=== PATIENT | female | born 1985 | race African-American/Black ===

== ENCOUNTER 2019-01-06 17:44 | Inpatient (IN) | payer MEDICAID ==
[~2019-01-06] VITALS: Ht 160 cm; Wt 90.7 kg
[~2019-01-06 17:44] MED LIST: DIPH25CA85 PO; FERR1TAB24 PO; PREN1TAB52 PO
[2019-01-06] MEDS ORDERED: LORazepam 2 MG TABLET PO ONE (19:30)
[2019-01-06] MEDS ORDERED: HALOPERIDOL 5 MG TABLET PO ONE (19:30)
[2019-01-06 19:36] LABS: BASOPHILS % (AUTO) 0.5 % (0.0-2.0); EOSINOPHILS % (AUTO) 0.2 % (1.0-6.0); HEMATOCRIT 35.2 % (36-46); HEMOGLOBIN 11.4 g/dL (12.0-16.0); LYMPHOCYTES # (AUTO) 2.4 K/uL (1.0-4.8); LYMPHOCYTES % (AUTO) 21.8 % (22.0-44.0); MEAN CORPUSCULAR HEMOGLOBIN 25.8 pg (26.0-34.0); MEAN CORPUSCULAR HGB CONC 32.6 G/dL (31.0-37.0); MEAN CORPUSCULAR VOLUME 79 fL (80-100); MONOCYTES # (AUTO) 0.8 K/uL (0.1-1.0); MONOCYTES % (AUTO) 7.1 % (2.0-9.0); NEUTROPHILS # (AUTO) 7.8 K/uL (1.8-7.7); NEUTROPHILS % (AUTO) 70.4 % (40.0-70.0); PLATELET COUNT (AUTO) 362 K/uL (150-450); RED BLOOD CELL COUNT(AUTO) 4.44 MIL/uL (4.00-5.20); RED CELL DISTRIBUTION WIDTH 13.9 % (11.5-14.5)
[2019-01-06 19:52] LABS: ANION GAP 15 mmol/L (8-16); CARBON DIOXIDE 23 mmol/L (22-29); CHLORIDE 103 mmol/L (98-107); CREATININE 0.83 mg/dL (0.60-1.30); GLOMERULAR FILTR. RATE CALC > 60 mL/min (>60); GLUCOSE,RANDOM 85 mg/dL (70-110); POTASSIUM 3.1 mmol/L (3.5-5.1); SODIUM SERUM 141 mmol/L (136-145); UREA NITROGEN, BLOOD 14 mg/dL (7-18)
[2019-01-06 19:58] LABS: ALANINE AMINOTRANSFERASE 35 U/L (12-78); ALBUMIN 4.3 g/dL (3.4-5.0); ALKALINE PHOSPHATASE 54 U/L (46-116); ASPARTATE AMINOTRANSFERASE 30 U/L (15-37); BILIRUBIN,TOTAL 0.5 mg/dL (0.1-1.0); TOTAL PROTEIN, SERUM 8.2 g/dL (6.4-8.2)
[2019-01-06 20:03] LABS: AMPHET/METH SCREEN,URINE POSITIVE (NEGATIVE); BARBITURATE SCREEN, URINE NEGATIVE (NEGATIVE); BENZODIAZEPINES SCREEN,URINE NEGATIVE (NEGATIVE); CANNABINOID SCREEN,URINE NEGATIVE (NEGATIVE); COCAINE SCREEN,URINE NEGATIVE (NEGATIVE); METHADONE SCREEN, URINE NEGATIVE (NEGATIVE); OPIATE SCREEN,URINE NEGATIVE (NEGATIVE); PHENCYCLIDINE SCREEN,URINE NEGATIVE (NEGATIVE)
[2019-01-06 21:08] LABS: HEMOGLOBIN A1C 6.5 % (4.5-6.2)
[2019-01-06 21:17] LABS: CHOL/HDL RATIO 3.5 (3.9-5.7); FREE T4 (FREE THYROXINE) 1.2 ng/dL (0.76-1.46); THYROID STIMULATING HORMONE 2.33 uIU/mL (0.36-3.74)
[2019-01-06] MEDS ORDERED: POTASSIUM CHLORIDE 10% 40 MEQ/30 ML LIQUID UDCUP PO ONE (21:30)
[2019-01-07 00:16] VITALS: BP 110/68
[2019-01-07] MEDS ORDERED: BACITRACIN 28.4 GM OINTMENT TP PRN (06:00)
[2019-01-07] MEDS ORDERED: BENZOCAINE/MENTHOL LOZENGE MM PRN (06:00)
[2019-01-07] MEDS ORDERED: PETROLATUM,WHITE 28 GM JELLY TP PRN (06:00)
[2019-01-07] MEDS ORDERED: CloNIDine HCL 0.1 MG TABLET PO PRN (06:00)
[2019-01-07] MEDS ORDERED: ONDANSETRON HCL 4 MG TABLET PO PRN (06:00)
[2019-01-07] MEDS ORDERED: ALBUTEROL SULFATE HFA 90 MCG/PUFF 8 GM INHALER IH PRN (06:00)
[2019-01-07] MEDS ORDERED: MAGNESIUM HYDROXIDE SUSPENSION 30 ML UDCUP PO PRN (06:00)
[2019-01-07] MEDS ORDERED: MAG HYDROX/AL HYDROX/SIMETH ES 30 ML SUSPENSION UDCUP PO PRN (06:00)
[2019-01-07] MEDS ORDERED: LOPERAMIDE HCL 2 MG CAPSULE PO PRN (06:00)
[2019-01-07] MEDS: OMEPRAZOLE 20 MG CAPSULE PO SCH (09:00)
[2019-01-07] MEDS: DOCUSATE SODIUM 100 MG CAPSULE PO SCH (09:00)
[2019-01-07 09:16] VITALS: BP 101/61
[2019-01-07] MEDS ORDERED: GLUCAGON,HUMAN RECOMBINANT 1 MG VIAL IM PRN (09:30)
[2019-01-07 12:39] LABS: GLUCOMETER DEV NAME(LOC) BV2S.; GLUCOSE,POINT OF CARE 95 MG/DL (70-110)
[2019-01-07 16:08] VITALS: BP 107/65
[2019-01-07] MEDS: MetFORMIN HCL 500 MG TABLET PO SCH (16:42)
[2019-01-07 16:49] LABS: GLUCOMETER DEV NAME(LOC) BV2S.; GLUCOSE,POINT OF CARE 119 MG/DL (70-110)
[2019-01-07] MEDS: LORazepam 2 MG TABLET PO PRN (20:23)
[2019-01-07] MEDS: HALOPERIDOL 5 MG TABLET PO PRN (20:50)
[2019-01-07 21:04] LABS: GLUCOMETER DEV NAME(LOC) BV2S.; GLUCOSE,POINT OF CARE 102 MG/DL (70-110)
[2019-01-08 00:10] VITALS: BP 112/70
[2019-01-08] MEDS: MetFORMIN HCL 500 MG TABLET PO SCH ×4 (07:05→17:05)
[2019-01-08 07:24] LABS: GLUCOMETER DEV NAME(LOC) BV2S.; GLUCOSE,POINT OF CARE 89 MG/DL (70-110)
[2019-01-08 08:25] VITALS: BP 114/74
[2019-01-08] MEDS: DOCUSATE SODIUM 100 MG CAPSULE PO SCH ×2 (09:00→09:08)
[2019-01-08] MEDS: OMEPRAZOLE 20 MG CAPSULE PO SCH ×2 (09:00→09:08)
[2019-01-08 10:54] LABS: GLUCOMETER DEV NAME(LOC) BV2S.; GLUCOSE,POINT OF CARE 89 MG/DL (70-110)
[2019-01-08] MEDS: OLANZapine 10 MG TABLET PO SCH ×2 (12:57→20:09)
[2019-01-08] MEDS: HALOPERIDOL 5 MG TABLET PO PRN (12:58)
[2019-01-08 16:01] VITALS: BP 110/68
[2019-01-08 21:19] LABS: GLUCOMETER DEV NAME(LOC) BV2S.; GLUCOSE,POINT OF CARE 86 MG/DL (70-110)
[2019-01-09 00:02] VITALS: BP 116/78
[2019-01-09] MEDS: MetFORMIN HCL 500 MG TABLET PO SCH ×2 (07:15→17:00)
[2019-01-09 08:03] LABS: BASOPHILS % (AUTO) 0.5 % (0.0-2.0); EOSINOPHILS % (AUTO) 1.6 % (1.0-6.0); HEMATOCRIT 36.7 % (36-46); LYMPHOCYTES # (AUTO) 3.1 K/uL (1.0-4.8); LYMPHOCYTES % (AUTO) 44.5 % (22.0-44.0); MEAN CORPUSCULAR HEMOGLOBIN 26.1 pg (26.0-34.0); MEAN CORPUSCULAR HGB CONC 32.7 G/dL (31.0-37.0); MEAN CORPUSCULAR VOLUME 80 fL (80-100); MONOCYTES # (AUTO) 0.5 K/uL (0.1-1.0); MONOCYTES % (AUTO) 7.2 % (2.0-9.0); NEUTROPHILS # (AUTO) 3.2 K/uL (1.8-7.7); NEUTROPHILS % (AUTO) 46.2 % (40.0-70.0); PLATELET COUNT (AUTO) 363 K/uL (150-450); RED BLOOD CELL COUNT(AUTO) 4.61 MIL/uL (4.00-5.20); RED CELL DISTRIBUTION WIDTH 14.3 % (11.5-14.5)
[2019-01-09 08:20] LABS: % IRON SATURATION 17.1 % (22-44); ALANINE AMINOTRANSFERASE 35 U/L (12-78); ALBUMIN 3.7 g/dL (3.4-5.0); ALKALINE PHOSPHATASE 52 U/L (46-116); ANION GAP 10 mmol/L (8-16); ASPARTATE AMINOTRANSFERASE 20 U/L (15-37); BILIRUBIN,TOTAL 0.3 mg/dL (0.1-1.0); CALCIUM, TOTAL 8.5 mg/dL (8.8-10.5); CARBON DIOXIDE 27 mmol/L (22-29); CHLORIDE 105 mmol/L (98-107); CHOL/HDL RATIO 4.3 (3.9-5.7); CHOLESTEROL 142 mg/dL (131-200); CREATININE 0.78 mg/dL (0.60-1.30); GLOMERULAR FILTR. RATE CALC > 60 mL/min (>60); GLUCOSE,RANDOM 79 mg/dL (70-110); HDL CHOLESTEROL 33 mg/dL (40-60); IRON, SERUM 42 mcg/dL (50-175); LDL CHOL (CALC.) 95 mg/dL (0-130); POTASSIUM 3.2 mmol/L (3.5-5.1); SODIUM SERUM 142 mmol/L (136-145); TOTAL IRON BINDING CAPACITY 245 mcg/dL (250-450); TOTAL PROTEIN, SERUM 7.3 g/dL (6.4-8.2); TRIGLYCERIDES 71 mg/dL (15-150); UREA NITROGEN, BLOOD 11 mg/dL (7-18)
[2019-01-09 08:54] VITALS: BP 101/66
[2019-01-09] MEDS: OMEPRAZOLE 20 MG CAPSULE PO SCH ×2 (09:00→09:20)
[2019-01-09] MEDS: OLANZapine 10 MG TABLET PO SCH ×2 (09:20→20:28)
[2019-01-09] MEDS: DOCUSATE SODIUM 100 MG CAPSULE PO SCH (09:20)
[2019-01-09] MEDS ORDERED: POTASSIUM CHLORIDE 20 MEQ ER TABLET PO ONE (11:30)
[2019-01-09] MEDS: HALOPERIDOL 5 MG TABLET PO PRN (12:50)
[2019-01-09] MEDS: LORazepam 2 MG TABLET PO PRN (12:50)
[2019-01-09 20:49] LABS: GLUCOMETER DEV NAME(LOC) BV2S.; GLUCOSE,POINT OF CARE 104 MG/DL (70-110)
[2019-01-10 06:25] LABS: GLUCOMETER DEV NAME(LOC) BV2S.; GLUCOSE,POINT OF CARE 96 MG/DL (70-110)
[2019-01-10] MEDS: MetFORMIN HCL 500 MG TABLET PO SCH ×2 (06:40→16:53)
[2019-01-10 06:52] VITALS: BP 102/61
[2019-01-10 08:48] VITALS: BP 114/67
[2019-01-10 08:59] LABS: ANION GAP 8 mmol/L (8-16); CALCIUM, TOTAL 8.6 mg/dL (8.8-10.5); CARBON DIOXIDE 28 mmol/L (22-29); CHLORIDE 109 mmol/L (98-107); GLOMERULAR FILTR. RATE CALC > 60 mL/min (>60); GLUCOSE,RANDOM 83 mg/dL (70-110); POTASSIUM 3.7 mmol/L (3.5-5.1); SODIUM SERUM 145 mmol/L (136-145); UREA NITROGEN, BLOOD 15 mg/dL (7-18)
[2019-01-10] MEDS: DOCUSATE SODIUM 100 MG CAPSULE PO SCH (09:41)
[2019-01-10] MEDS: OMEPRAZOLE 20 MG CAPSULE PO SCH (09:41)
[2019-01-10] MEDS: OLANZapine 10 MG TABLET PO SCH ×2 (09:41→21:00)
[2019-01-10 10:49] LABS: GLUCOMETER DEV NAME(LOC) BV2S.; GLUCOSE,POINT OF CARE 129 MG/DL (70-110)
[2019-01-10] MEDS: LORazepam 2 MG TABLET PO PRN (12:04)
[2019-01-10] MEDS: HALOPERIDOL 5 MG TABLET PO PRN (12:04)
[2019-01-11] MEDS: MetFORMIN HCL 500 MG TABLET PO SCH ×2 (06:43→16:18)
[2019-01-11] MEDS: DOCUSATE SODIUM 100 MG CAPSULE PO SCH (08:15)
[2019-01-11] MEDS: OMEPRAZOLE 20 MG CAPSULE PO SCH (08:15)
[2019-01-11] MEDS: OLANZapine 10 MG TABLET PO SCH ×2 (08:15→20:24)
[2019-01-11 12:05] VITALS: BP 118/70
[2019-01-11 15:49] VITALS: BP 108/62
[2019-01-11 16:00] VITALS: BP 108/62
[2019-01-11] MEDS: HALOPERIDOL 5 MG TABLET PO PRN ×2 (17:07→22:47)
[2019-01-11 17:20] LABS: GLUCOMETER DEV NAME(LOC) BV2S.; GLUCOSE,POINT OF CARE 115 MG/DL (70-110)
[2019-01-11] MEDS: LORazepam 2 MG TABLET PO PRN ×2 (18:19→22:47)
[2019-01-11 22:45] VITALS: BP 118/75
[2019-01-11] MEDS: ZOLPIDEM TARTRATE 10 MG TABLET PO PRN (22:47)
[2019-01-12 06:19] VITALS: BP 143/72
[2019-01-12] MEDS: MetFORMIN HCL 500 MG TABLET PO SCH ×2 (06:50→17:25)
[2019-01-12] MEDS: OLANZapine 10 MG TABLET PO SCH ×2 (08:32→20:04)
[2019-01-12] MEDS: DOCUSATE SODIUM 100 MG CAPSULE PO SCH (08:32)
[2019-01-12] MEDS: OMEPRAZOLE 20 MG CAPSULE PO SCH (08:32)
[2019-01-12] MEDS: LORazepam 2 MG TABLET PO PRN ×2 (08:36→14:50)
[2019-01-12] MEDS: IBUPROFEN 600 MG TABLET PO PRN ×2 (14:50→23:48)
[2019-01-12 16:19] VITALS: BP 117/63
[2019-01-12] MEDS: HALOPERIDOL 5 MG TABLET PO PRN (17:29)
[2019-01-12] MEDS: ZOLPIDEM TARTRATE 10 MG TABLET PO PRN (20:48)
[2019-01-12 22:05] LABS: GLUCOMETER DEV NAME(LOC) BV3S.; GLUCOSE,POINT OF CARE 98 MG/DL (70-110)
[2019-01-12 23:40] VITALS: BP 115/75
[2019-01-13] MEDS: HALOPERIDOL 5 MG TABLET PO PRN (00:30)
[2019-01-13] MEDS: LORazepam 2 MG TABLET PO PRN ×2 (00:30→20:48)
[2019-01-13] MEDS ORDERED: BENZOCAINE 20% 11.9 GM GEL TP PRN (00:45)
[2019-01-13] MEDS: BENZOCAINE 10% 7 GM GEL TP PRN (00:59)
[2019-01-13] MEDS: MetFORMIN HCL 500 MG TABLET PO SCH ×2 (07:00→16:23)
[2019-01-13 09:28] VITALS: BP 113/69
[2019-01-13] MEDS: OMEPRAZOLE 20 MG CAPSULE PO SCH (10:01)
[2019-01-13] MEDS: DOCUSATE SODIUM 100 MG CAPSULE PO SCH (10:01)
[2019-01-13] MEDS: OLANZapine 10 MG TABLET PO SCH ×2 (10:01→20:23)
[2019-01-13 16:08] VITALS: BP 106/57
[2019-01-13] MEDS: CHLORHEXIDINE GLUCONATE 0.12% 15 ML UDCUP ORAL RINSE PO SCH ×2 (16:41→20:24)
[2019-01-13 17:10] LABS: GLUCOMETER DEV NAME(LOC) BV3S.; GLUCOSE,POINT OF CARE 111 MG/DL (70-110)
[2019-01-13] MEDS: ZOLPIDEM TARTRATE 10 MG TABLET PO PRN (20:48)
[2019-01-13 21:05] LABS: GLUCOMETER DEV NAME(LOC) BV3S.; GLUCOSE,POINT OF CARE 106 MG/DL (70-110)
[2019-01-13] MEDS ORDERED: AMOXICILLIN TRIHYDRATE 250 MG CAPSULE PO ONE (21:30)
[2019-01-14] VITALS (7 sets, daily range): BP systolic 96–137; BP diastolic 45–134
[2019-01-14] MEDS: ACETAMINOPHEN 325 MG TABLET PO PRN ×3 (01:51→23:56)
[2019-01-14] MEDS: BENZOCAINE 10% 7 GM GEL TP PRN (01:51)
[2019-01-14] MEDS: IBUPROFEN 600 MG TABLET PO PRN ×2 (03:36→18:00)
[2019-01-14] MEDS: LORazepam 2 MG TABLET PO PRN ×3 (03:36→21:16)
[2019-01-14 06:24] LABS: GLUCOMETER DEV NAME(LOC) BV3S.; GLUCOSE,POINT OF CARE 85 MG/DL (70-110)
[2019-01-14] MEDS: MetFORMIN HCL 500 MG TABLET PO SCH ×2 (07:15→16:50)
[2019-01-14] MEDS: OLANZapine 10 MG TABLET PO SCH ×2 (09:39→20:40)
[2019-01-14] MEDS: AMOXICILLIN TRIHYDRATE 500 MG CAPSULE PO SCH ×3 (09:40→16:50)
[2019-01-14] MEDS: DOCUSATE SODIUM 100 MG CAPSULE PO SCH (09:40)
[2019-01-14] MEDS: OMEPRAZOLE 20 MG CAPSULE PO SCH (09:40)
[2019-01-14 12:00] LABS: GLUCOMETER DEV NAME(LOC) BV3S.; GLUCOSE,POINT OF CARE 165 MG/DL (70-110)
[2019-01-14] MEDS: INSULIN LISPRO 100 UNITS/ML SQ PRN ×2 (12:07→21:17)
[2019-01-14] MEDS: CHLORHEXIDINE GLUCONATE 0.12% 15 ML UDCUP ORAL RINSE PO SCH ×4 (12:25→20:39)
[2019-01-14] MEDS: HALOPERIDOL 5 MG TABLET PO PRN ×2 (16:50→21:15)
[2019-01-14 16:55] LABS: GLUCOMETER DEV NAME(LOC) BV3S.; GLUCOSE,POINT OF CARE 126 MG/DL (70-110)
[2019-01-14 21:00] LABS: GLUCOMETER DEV NAME(LOC) BV3S.; GLUCOSE,POINT OF CARE 193 MG/DL (70-110)
[2019-01-14] MEDS: ZOLPIDEM TARTRATE 10 MG TABLET PO PRN (22:16)
[2019-01-15] MEDS: BENZOCAINE 10% 7 GM GEL TP PRN ×2 (00:05→17:35)
[2019-01-15] MEDS: IBUPROFEN 600 MG TABLET PO PRN ×3 (00:30→19:23)
[2019-01-15] MEDS ORDERED: LORazepam 2 MG/ML VIAL ONE ×2 (01:28→16:32)
[2019-01-15] MEDS ORDERED: HALOPERIDOL LACTATE 5 MG/ML VIAL IM ONE ×2 (01:30→16:45)
[2019-01-15] MEDS ORDERED: DiphenhydrAMINE HCL 50 MG/ML VIAL IM ONE ×2 (01:30→16:45)
[2019-01-15] MEDS ORDERED: LORazepam 2 MG/ML VIAL IM ONE ×2 (01:30→16:45)
[2019-01-15 06:39] VITALS: BP 125/87
[2019-01-15 06:59] LABS: GLUCOMETER DEV NAME(LOC) BV3S.; GLUCOSE,POINT OF CARE 87 MG/DL (70-110)
[2019-01-15] MEDS: MetFORMIN HCL 500 MG TABLET PO SCH ×2 (07:01→16:59)
[2019-01-15] MEDS: CHLORHEXIDINE GLUCONATE 0.12% 15 ML UDCUP ORAL RINSE PO SCH ×4 (07:02→21:00)
[2019-01-15 09:57] VITALS: BP 125/68
[2019-01-15] MEDS: AMOXICILLIN TRIHYDRATE 500 MG CAPSULE PO SCH ×3 (10:13→16:59)
[2019-01-15] MEDS: OLANZapine 10 MG TABLET PO SCH ×2 (10:13→21:00)
[2019-01-15] MEDS: OMEPRAZOLE 20 MG CAPSULE PO SCH (10:13)
[2019-01-15] MEDS: DOCUSATE SODIUM 100 MG CAPSULE PO SCH (10:13)
[2019-01-15 11:34] LABS: GLUCOMETER DEV NAME(LOC) BV3S.; GLUCOSE,POINT OF CARE 119 MG/DL (70-110)
[2019-01-15] MEDS ORDERED: DiphenhydrAMINE HCL 50 MG/ML VIAL ONE (16:32)
[2019-01-15] MEDS ORDERED: HALOPERIDOL LACTATE 5 MG/ML VIAL ONE (16:32)
[2019-01-15 19:18] VITALS: BP 140/94
[2019-01-15 20:25] LABS: GLUCOMETER DEV NAME(LOC) BV3S.; GLUCOSE,POINT OF CARE 108 MG/DL (70-110)
[2019-01-16] MEDS ORDERED: DiphenhydrAMINE HCL 50 MG/ML VIAL IM ONE (00:45)
[2019-01-16] MEDS ORDERED: HALOPERIDOL LACTATE 5 MG/ML VIAL IM ONE (00:45)
[2019-01-16] MEDS ORDERED: LORazepam 2 MG/ML VIAL IM ONE (00:45)
[2019-01-16 06:56] VITALS: BP 139/76
[2019-01-16] MEDS: IBUPROFEN 600 MG TABLET PO PRN (06:56)
[2019-01-16] MEDS: MetFORMIN HCL 500 MG TABLET PO SCH ×2 (06:56→16:13)
[2019-01-16 06:59] LABS: GLUCOMETER DEV NAME(LOC) BV3S.; GLUCOSE,POINT OF CARE 79 MG/DL (70-110)
[2019-01-16] MEDS: SUMAtriptan SUCCINATE 25 MG TABLET PO ONE ×2 (08:08→10:35)
[2019-01-16] MEDS: DOCUSATE SODIUM 100 MG CAPSULE PO SCH (08:09)
[2019-01-16] MEDS: OLANZapine 10 MG TABLET PO SCH ×2 (08:09→20:05)
[2019-01-16] MEDS: AMOXICILLIN TRIHYDRATE 500 MG CAPSULE PO SCH ×3 (08:09→16:13)
[2019-01-16] MEDS: OMEPRAZOLE 20 MG CAPSULE PO SCH (08:09)
[2019-01-16] MEDS: CHLORHEXIDINE GLUCONATE 0.12% 15 ML UDCUP ORAL RINSE PO SCH ×4 (08:09→20:07)
[2019-01-16 08:19] VITALS: BP 121/66
[2019-01-16] MEDS: DULoxetine HCL 30 MG CAPSULE PO SCH (11:28)
[2019-01-16] MEDS: ACETAMINOPHEN 325 MG TABLET PO PRN ×2 (11:28→17:17)
[2019-01-16 11:55] LABS: GLUCOMETER DEV NAME(LOC) BV3S.; GLUCOSE,POINT OF CARE 116 MG/DL (70-110)
[2019-01-16] MEDS: GABAPENTIN 300 MG CAPSULE PO SCH ×2 (12:06→16:13)
[2019-01-16 16:07] VITALS: BP 108/63
[2019-01-16 17:06] LABS: GLUCOMETER DEV NAME(LOC) BV3S.; GLUCOSE,POINT OF CARE 100 MG/DL (70-110)
[2019-01-16] MEDS: LORazepam 2 MG TABLET PO PRN (17:16)
[2019-01-16] MEDS: HALOPERIDOL 5 MG TABLET PO PRN (17:16)
[2019-01-16] MEDS: ZOLPIDEM TARTRATE 10 MG TABLET PO PRN (20:05)
[2019-01-16 20:35] LABS: GLUCOMETER DEV NAME(LOC) BV3S.; GLUCOSE,POINT OF CARE 119 MG/DL (70-110)
[2019-01-17 00:33] VITALS: BP 127/80
[2019-01-17 05:45] VITALS: BP 125/63
[2019-01-17] MEDS: IBUPROFEN 600 MG TABLET PO PRN (05:48)
[2019-01-17 06:30] LABS: GLUCOMETER DEV NAME(LOC) BV3S.; GLUCOSE,POINT OF CARE 136 MG/DL (70-110)
[2019-01-17] MEDS: MetFORMIN HCL 500 MG TABLET PO SCH ×2 (06:52→16:52)
[2019-01-17] MEDS: CHLORHEXIDINE GLUCONATE 0.12% 15 ML UDCUP ORAL RINSE PO SCH ×4 (07:11→20:41)
[2019-01-17] MEDS: GABAPENTIN 300 MG CAPSULE PO SCH (08:25)
[2019-01-17] MEDS: DULoxetine HCL 30 MG CAPSULE PO SCH (08:25)
[2019-01-17] MEDS: OMEPRAZOLE 20 MG CAPSULE PO SCH (08:25)
[2019-01-17] MEDS: DOCUSATE SODIUM 100 MG CAPSULE PO SCH (08:25)
[2019-01-17] MEDS: OLANZapine 10 MG TABLET PO SCH ×2 (08:25→20:40)
[2019-01-17 08:29] VITALS: BP 125/70
[2019-01-17 12:00] LABS: GLUCOMETER DEV NAME(LOC) BV3S.; GLUCOSE,POINT OF CARE 110 MG/DL (70-110)
[2019-01-17] MEDS: GABAPENTIN 400 MG CAPSULE PO SCH ×2 (12:10→16:53)
[2019-01-17] MEDS ORDERED: GABAPENTIN 300 MG CAPSULE PO SCH (13:00)
[2019-01-17 14:25] VITALS: BP 130/70
[2019-01-17] MEDS: ACETAMINOPHEN 325 MG TABLET PO PRN (14:33)
[2019-01-17 16:09] VITALS: BP 144/74
[2019-01-17 16:15] LABS: GLUCOMETER DEV NAME(LOC) BV3S.; GLUCOSE,POINT OF CARE 118 MG/DL (70-110)
[2019-01-17] MEDS: HALOPERIDOL 5 MG TABLET PO PRN ×2 (16:53→22:57)
[2019-01-17] MEDS: LORazepam 2 MG TABLET PO PRN ×2 (16:53→22:57)
[2019-01-17 20:10] LABS: GLUCOMETER DEV NAME(LOC) BV3S.; GLUCOSE,POINT OF CARE 142 MG/DL (70-110)
[2019-01-17] MEDS: ZOLPIDEM TARTRATE 10 MG TABLET PO PRN (20:41)
[2019-01-17] MEDS: INSULIN LISPRO 100 UNITS/ML SQ PRN (21:00)
[2019-01-18] VITALS: BP 135/82
[2019-01-18] MEDS: BENZOCAINE 10% 7 GM GEL TP PRN (00:01)
[2019-01-18] MEDS: IBUPROFEN 600 MG TABLET PO PRN ×2 (00:01→18:30)
[2019-01-18] MEDS: ACETAMINOPHEN 325 MG TABLET PO PRN (03:38)
[2019-01-18 05:51] LABS: GLUCOMETER DEV NAME(LOC) BV3S.; GLUCOSE,POINT OF CARE 110 MG/DL (70-110)
[2019-01-18] MEDS: MetFORMIN HCL 500 MG TABLET PO SCH ×2 (06:35→17:19)
[2019-01-18] MEDS: CHLORHEXIDINE GLUCONATE 0.12% 15 ML UDCUP ORAL RINSE PO SCH ×5 (06:49→20:58)
[2019-01-18] MEDS: OLANZapine 10 MG TABLET PO SCH ×2 (08:01→20:58)
[2019-01-18] MEDS: DOCUSATE SODIUM 100 MG CAPSULE PO SCH (08:02)
[2019-01-18] MEDS: OMEPRAZOLE 20 MG CAPSULE PO SCH (08:02)
[2019-01-18] MEDS: DULoxetine HCL 30 MG CAPSULE PO SCH (08:02)
[2019-01-18] MEDS: GABAPENTIN 400 MG CAPSULE PO SCH ×3 (08:03→17:19)
[2019-01-18 08:22] VITALS: BP 122/74
[2019-01-18 12:00] LABS: GLUCOMETER DEV NAME(LOC) BV3S.; GLUCOSE,POINT OF CARE 90 MG/DL (70-110)
[2019-01-18] MEDS ORDERED: HALOPERIDOL LACTATE 5 MG/ML VIAL ONE (12:53)
[2019-01-18] MEDS ORDERED: LORazepam 2 MG/ML VIAL ONE (12:53)
[2019-01-18] MEDS ORDERED: DiphenhydrAMINE HCL 50 MG/ML VIAL IM ONE (13:00)
[2019-01-18] MEDS ORDERED: LORazepam 2 MG/ML VIAL IM ONE (13:00)
[2019-01-18] MEDS ORDERED: HALOPERIDOL LACTATE 5 MG/ML VIAL IM ONE (13:00)
[2019-01-18 16:55] LABS: GLUCOMETER DEV NAME(LOC) BV3S.; GLUCOSE,POINT OF CARE 151 MG/DL (70-110)
[2019-01-18 16:56] VITALS: BP 125/82
[2019-01-18] MEDS: INSULIN LISPRO 100 UNITS/ML SQ PRN (17:15)
[2019-01-18] MEDS: HALOPERIDOL 5 MG TABLET PO PRN (17:18)
[2019-01-18] MEDS: LORazepam 2 MG TABLET PO PRN ×2 (17:18→22:00)
[2019-01-18 18:29] VITALS: BP 130/77
[2019-01-18 20:54] LABS: GLUCOMETER DEV NAME(LOC) BV3S.; GLUCOSE,POINT OF CARE 130 MG/DL (70-110)
[2019-01-18] MEDS: ZOLPIDEM TARTRATE 10 MG TABLET PO PRN (20:57)
[2019-01-19 00:58] VITALS: BP 122/66
[2019-01-19 05:15] VITALS: BP 124/79
[2019-01-19] MEDS: IBUPROFEN 600 MG TABLET PO PRN (05:17)
[2019-01-19 06:29] LABS: GLUCOMETER DEV NAME(LOC) BV3S.; GLUCOSE,POINT OF CARE 82 MG/DL (70-110)
[2019-01-19] MEDS: MetFORMIN HCL 500 MG TABLET PO SCH (06:39)
[2019-01-19] MEDS: CHLORHEXIDINE GLUCONATE 0.12% 15 ML UDCUP ORAL RINSE PO SCH ×2 (07:11→12:11)
[2019-01-19 08:27] VITALS: BP 118/75
[2019-01-19] MEDS: OLANZapine 10 MG TABLET PO SCH (08:31)
[2019-01-19] MEDS: OMEPRAZOLE 20 MG CAPSULE PO SCH (08:31)
[2019-01-19] MEDS: DOCUSATE SODIUM 100 MG CAPSULE PO SCH (08:31)
[2019-01-19] MEDS: DULoxetine HCL 30 MG CAPSULE PO SCH (08:32)
[2019-01-19] MEDS: GABAPENTIN 400 MG CAPSULE PO SCH ×2 (08:32→12:11)
[2019-01-19 12:00] LABS: GLUCOMETER DEV NAME(LOC) BV3S.; GLUCOSE,POINT OF CARE 104 MG/DL (70-110)
[2019-01-19] MEDS ORDERED: OLAN10TA3 PO (13:55)
[2019-01-19] MEDS ORDERED: OMEP20 PO (13:55)
[2019-01-19] MEDS ORDERED: DSS100 PO (13:55)
[2019-01-19] MEDS ORDERED: METF-960 PO (13:55)
[2019-01-19] MEDS ORDERED: GABA-533 PO (13:55)
[2019-01-19] MEDS ORDERED: PERID15L MM (13:55)
[2019-01-19] MEDS ORDERED: DULO30CA2 PO (13:55)
[2019-01-19 14:42] VITALS: BP 132/76
[2019-01-19] MEDS: ACETAMINOPHEN 325 MG TABLET PO PRN (14:56)
[2019-01-19 16:08] VITALS: BP 134/80
== END 2019-01-19 15:34 | disposition home or self-care (01) | DRG 750 ==
LOC: EMS 17:45 → B2S 21:00 → B3A 01-11 22:12
PROVIDERS: ADMIT Psychiatry & Neurology Psychiatry; ATTEND Psychiatry & Neurology Psychiatry
DX: F20.9 Schizophrenia, unspecified (principal); E11.9 Type 2 diabetes mellitus without complications; D50.9 Iron deficiency anemia, unspecified; E66.9 Obesity, unspecified; D72.829 Elevated white blood cell count, unspecified; E87.6 Hypokalemia; F15.10 Other stimulant abuse, uncomplicated; F17.210 Nicotine dependence, cigarettes, uncomplicated; F32.9 Major depressive disorder, single episode, unspecified; K04.7 Periapical abscess without sinus; R41.843 Psychomotor deficit; R45.87 Impulsiveness; Z68.35 Body mass index [BMI] 35.0-35.9, adult; Z71.6 Tobacco abuse counseling; Z59.0 Homelessness; Z91.5 Personal history of self-harm; Z56.0 Unemployment, unspecified
CPT/HCPCS: 83036; 83540; 83550; 84439; 84443; G0480; J1200; J1630; J2060

== ENCOUNTER 2019-03-08 20:19 | Inpatient (IN) | payer MEDICAID ==
[~2019-03-08] VITALS: Ht 154.9 cm; Wt 81.6 kg
[~2019-03-08 20:19] MED LIST changes: -DIPH25CA85 PO; +DSS100 PO; +DULO30CA2 PO; -FERR1TAB24 PO; +GABA-533 PO; +METF-960 PO; +OLAN10TA3 PO; +OMEP20 PO; +PERID15L MM; -PREN1TAB52 PO
[2019-03-08 21:58] LABS: BASOPHILS % (AUTO) 0.4 % (0.0-2.0); EOSINOPHILS % (AUTO) 0.3 % (1.0-6.0); HEMATOCRIT 35.5 % (36-46); HEMOGLOBIN 11.4 g/dL (12.0-16.0); LYMPHOCYTES # (AUTO) 2.4 K/uL (1.0-4.8); MEAN CORPUSCULAR HEMOGLOBIN 26.3 pg (26.0-34.0); MEAN CORPUSCULAR HGB CONC 32.2 G/dL (31.0-37.0); MEAN CORPUSCULAR VOLUME 82 fL (80-100); MONOCYTES # (AUTO) 0.6 K/uL (0.1-1.0); MONOCYTES % (AUTO) 4.5 % (2.0-9.0); NEUTROPHILS # (AUTO) 9.6 K/uL (1.8-7.7); NEUTROPHILS % (AUTO) 75.8 % (40.0-70.0); PLATELET COUNT (AUTO) 416 K/uL (150-450); RED BLOOD CELL COUNT(AUTO) 4.34 MIL/uL (4.00-5.20); RED CELL DISTRIBUTION WIDTH 15.1 % (11.5-14.5)
[2019-03-08 22:05] LABS: AMPHET/METH SCREEN,URINE POSITIVE (NEGATIVE); BARBITURATE SCREEN, URINE NEGATIVE (NEGATIVE); BENZODIAZEPINES SCREEN,URINE NEGATIVE (NEGATIVE); CANNABINOID SCREEN,URINE NEGATIVE (NEGATIVE); COCAINE SCREEN,URINE NEGATIVE (NEGATIVE); METHADONE SCREEN, URINE NEGATIVE (NEGATIVE); OPIATE SCREEN,URINE NEGATIVE (NEGATIVE)
[2019-03-08 22:06] LABS: PHENCYCLIDINE SCREEN,URINE NEGATIVE (NEGATIVE)
[2019-03-08 22:11] LABS: ANION GAP 13 mmol/L (8-16); CALCIUM, TOTAL 9.1 mg/dL (8.8-10.5); CARBON DIOXIDE 22 mmol/L (22-29); CHLORIDE 103 mmol/L (98-107); CREATININE 0.99 mg/dL (0.60-1.30); GLOMERULAR FILTR. RATE CALC > 60 mL/min (>60); GLUCOSE,RANDOM 109 mg/dL (70-110); POTASSIUM 3.5 mmol/L (3.5-5.1); SODIUM SERUM 138 mmol/L (136-145); UREA NITROGEN, BLOOD 18 mg/dL (7-18)
[2019-03-08 22:25] LABS: ALANINE AMINOTRANSFERASE 37 U/L (12-78); ALBUMIN 4.3 g/dL (3.4-5.0); ALKALINE PHOSPHATASE 62 U/L (46-116); ASPARTATE AMINOTRANSFERASE 20 U/L (15-37); BILIRUBIN,TOTAL 0.2 mg/dL (0.1-1.0); HCG,QUANTITATIVE < 1 mIU/mL (0-6); TOTAL PROTEIN, SERUM 8.9 g/dL (6.4-8.2)
[2019-03-08 23:09] LABS: GLUCOSE,POINT OF CARE 118 MG/DL (70-110)
[2019-03-09] MEDS ORDERED: HALOPERIDOL 5 MG TABLET PO PRN (04:00)
[2019-03-09] MEDS ORDERED: LORazepam 2 MG/ML VIAL IM ONE (04:15)
[2019-03-09 06:18] VITALS: BP 122/83
[2019-03-09] MEDS ORDERED: GLUCAGON,HUMAN RECOMBINANT 1 MG VIAL IM PRN (07:00)
[2019-03-09] MEDS ORDERED: ONDANSETRON HCL 4 MG TABLET PO PRN (07:15)
[2019-03-09] MEDS ORDERED: LOPERAMIDE HCL 2 MG CAPSULE PO PRN (07:15)
[2019-03-09] MEDS ORDERED: ALBUTEROL SULFATE HFA 90 MCG/PUFF 8 GM INHALER IH PRN (07:15)
[2019-03-09] MEDS ORDERED: MAGNESIUM HYDROXIDE SUSPENSION 30 ML UDCUP PO PRN (07:15)
[2019-03-09] MEDS ORDERED: BACITRACIN 28.4 GM OINTMENT TP PRN (07:15)
[2019-03-09] MEDS ORDERED: MAG HYDROX/AL HYDROX/SIMETH ES 30 ML SUSPENSION UDCUP PO PRN (07:15)
[2019-03-09] MEDS ORDERED: PETROLATUM,WHITE 28 GM JELLY TP PRN (07:15)
[2019-03-09] MEDS ORDERED: CloNIDine HCL 0.1 MG TABLET PO PRN (07:15)
[2019-03-09] MEDS ORDERED: IBUPROFEN 600 MG TABLET PO PRN (07:15)
[2019-03-09] MEDS ORDERED: ACETAMINOPHEN 325 MG TABLET PO PRN (07:15)
[2019-03-09] MEDS ORDERED: BENZOCAINE/MENTHOL LOZENGE MM PRN (07:15)
[2019-03-09 08:15] VITALS: BP 124/73
[2019-03-09] MEDS: DOCUSATE SODIUM 100 MG CAPSULE PO SCH (09:32)
[2019-03-09] MEDS: OMEPRAZOLE 20 MG CAPSULE PO SCH (09:32)
[2019-03-09 13:14] LABS: GLUCOMETER DEV NAME(LOC) BV2X.; GLUCOSE,POINT OF CARE 124 MG/DL (70-110)
[2019-03-09 16:15] VITALS: BP 117/72
[2019-03-09 16:59] LABS: GLUCOMETER DEV NAME(LOC) BV2S.; GLUCOSE,POINT OF CARE 91 MG/DL (70-110)
[2019-03-09] MEDS: MetFORMIN HCL 500 MG TABLET PO SCH (16:59)
[2019-03-09 20:38] LABS: GLUCOMETER DEV NAME(LOC) BV2S.; GLUCOSE,POINT OF CARE 127 MG/DL (70-110)
[2019-03-09] MEDS: OLANZapine 10 MG TABLET PO SCH (20:44)
[2019-03-10 00:08] VITALS: BP_SYST 106
[2019-03-10 00:09] VITALS: BP 132/78
[2019-03-10 06:24] LABS: GLUCOMETER DEV NAME(LOC) BV2X.; GLUCOSE,POINT OF CARE 111 MG/DL (70-110)
[2019-03-10] MEDS: MetFORMIN HCL 500 MG TABLET PO SCH ×2 (06:40→16:47)
[2019-03-10 08:28] VITALS: BP 124/73
[2019-03-10] MEDS: DULoxetine HCL 60 MG CAPSULE PO SCH (08:36)
[2019-03-10] MEDS: GABAPENTIN 400 MG CAPSULE PO SCH ×3 (08:37→16:47)
[2019-03-10] MEDS: DOCUSATE SODIUM 100 MG CAPSULE PO SCH (08:37)
[2019-03-10] MEDS: OMEPRAZOLE 20 MG CAPSULE PO SCH (08:37)
[2019-03-10] MEDS: OLANZapine 10 MG TABLET PO SCH ×2 (08:37→20:46)
[2019-03-10 11:19] LABS: GLUCOMETER DEV NAME(LOC) BV2X.; GLUCOSE,POINT OF CARE 150 MG/DL (70-110)
[2019-03-10] MEDS: INSULIN LISPRO 100 UNITS/ML SQ PRN (11:59)
[2019-03-10 16:24] LABS: GLUCOMETER DEV NAME(LOC) BV2X.; GLUCOSE,POINT OF CARE 133 MG/DL (70-110)
[2019-03-10 16:40] VITALS: BP 120/87
[2019-03-10 20:39] LABS: GLUCOMETER DEV NAME(LOC) BV2X.; GLUCOSE,POINT OF CARE 118 MG/DL (70-110)
[2019-03-10] MEDS ORDERED: HALOPERIDOL LACTATE 5 MG/ML VIAL IM ONE (22:15)
[2019-03-10] MEDS ORDERED: DiphenhydrAMINE HCL 50 MG/ML VIAL IM ONE (22:15)
[2019-03-10] MEDS ORDERED: LORazepam 2 MG/ML VIAL IM ONE (22:15)
[2019-03-11] MEDS: MetFORMIN HCL 500 MG TABLET PO SCH ×2 (07:05→16:45)
[2019-03-11 07:13] LABS: GLUCOMETER DEV NAME(LOC) BV2S.; GLUCOSE,POINT OF CARE 82 MG/DL (70-110)
[2019-03-11 08:19] VITALS: BP 118/68
[2019-03-11] MEDS: DOCUSATE SODIUM 100 MG CAPSULE PO SCH (08:25)
[2019-03-11] MEDS: OLANZapine 10 MG TABLET PO SCH ×2 (08:26→20:14)
[2019-03-11] MEDS: GABAPENTIN 400 MG CAPSULE PO SCH ×3 (08:26→16:45)
[2019-03-11] MEDS: OMEPRAZOLE 20 MG CAPSULE PO SCH (08:26)
[2019-03-11] MEDS: DULoxetine HCL 60 MG CAPSULE PO SCH (08:26)
[2019-03-11] MEDS: LORazepam 2 MG TABLET PO PRN ×2 (11:35→20:46)
[2019-03-11 11:39] LABS: GLUCOMETER DEV NAME(LOC) BV2X.; GLUCOSE,POINT OF CARE 85 MG/DL (70-110)
[2019-03-11 16:59] LABS: GLUCOMETER DEV NAME(LOC) BV2X.; GLUCOSE,POINT OF CARE 94 MG/DL (70-110)
[2019-03-11 18:57] VITALS: BP 119/68
[2019-03-11 20:54] LABS: GLUCOMETER DEV NAME(LOC) BV2X.; GLUCOSE,POINT OF CARE 131 MG/DL (70-110)
[2019-03-12 05:56] VITALS: BP 121/67
[2019-03-12 06:19] LABS: GLUCOMETER DEV NAME(LOC) BV2X.; GLUCOSE,POINT OF CARE 101 MG/DL (70-110)
[2019-03-12] MEDS: MetFORMIN HCL 500 MG TABLET PO SCH ×2 (06:38→16:36)
[2019-03-12] MEDS: GABAPENTIN 400 MG CAPSULE PO SCH ×3 (08:12→16:37)
[2019-03-12] MEDS: DULoxetine HCL 60 MG CAPSULE PO SCH (08:12)
[2019-03-12] MEDS: OMEPRAZOLE 20 MG CAPSULE PO SCH (08:12)
[2019-03-12] MEDS: OLANZapine 10 MG TABLET PO SCH ×2 (08:12→20:25)
[2019-03-12] MEDS: DOCUSATE SODIUM 100 MG CAPSULE PO SCH (08:12)
[2019-03-12] MEDS: LORazepam 2 MG TABLET PO PRN ×2 (11:19→16:37)
[2019-03-12 11:24] LABS: GLUCOMETER DEV NAME(LOC) BV2X.; GLUCOSE,POINT OF CARE 86 MG/DL (70-110)
[2019-03-12 16:23] VITALS: BP 108/66
[2019-03-12 17:39] LABS: GLUCOMETER DEV NAME(LOC) BV2X.; GLUCOSE,POINT OF CARE 114 MG/DL (70-110)
[2019-03-12] MEDS: ZOLPIDEM TARTRATE 10 MG TABLET PO PRN (21:15)
[2019-03-13 01:57] VITALS: BP 122/68
[2019-03-13] MEDS: MetFORMIN HCL 500 MG TABLET PO SCH ×2 (06:04→16:49)
[2019-03-13 06:34] LABS: GLUCOMETER DEV NAME(LOC) BV2X.; GLUCOSE,POINT OF CARE 90 MG/DL (70-110)
[2019-03-13] MEDS: DULoxetine HCL 60 MG CAPSULE PO SCH (08:30)
[2019-03-13] MEDS: OLANZapine 10 MG TABLET PO SCH ×2 (08:30→20:13)
[2019-03-13] MEDS: GABAPENTIN 400 MG CAPSULE PO SCH ×3 (08:30→16:49)
[2019-03-13] MEDS: OMEPRAZOLE 20 MG CAPSULE PO SCH (08:31)
[2019-03-13] MEDS: DOCUSATE SODIUM 100 MG CAPSULE PO SCH (08:31)
[2019-03-13] MEDS ORDERED: LORazepam 2 MG/ML VIAL ONE (11:10)
[2019-03-13] MEDS ORDERED: HALOPERIDOL LACTATE 5 MG/ML VIAL ONE (11:10)
[2019-03-13] MEDS ORDERED: DiphenhydrAMINE HCL 50 MG/ML VIAL ONE (11:10)
[2019-03-13] MEDS ORDERED: HALOPERIDOL LACTATE 5 MG/ML VIAL IM ONE (11:45)
[2019-03-13] MEDS ORDERED: DiphenhydrAMINE HCL 50 MG/ML VIAL IM ONE (11:45)
[2019-03-13] MEDS ORDERED: LORazepam 2 MG/ML VIAL IM ONE (11:45)
[2019-03-13 16:49] LABS: GLUCOMETER DEV NAME(LOC) BV2X.; GLUCOSE,POINT OF CARE 87 MG/DL (70-110)
[2019-03-13 20:44] LABS: GLUCOMETER DEV NAME(LOC) BV2X.; GLUCOSE,POINT OF CARE 146 MG/DL (70-110)
[2019-03-13] MEDS: INSULIN LISPRO 100 UNITS/ML SQ PRN (20:54)
[2019-03-14 03:15] VITALS: BP 107/69
[2019-03-14 06:39] LABS: GLUCOMETER DEV NAME(LOC) BV2X.; GLUCOSE,POINT OF CARE 89 MG/DL (70-110)
[2019-03-14] MEDS: MetFORMIN HCL 500 MG TABLET PO SCH ×2 (07:16→16:40)
[2019-03-14 08:14] VITALS: BP 119/68
[2019-03-14] MEDS: OMEPRAZOLE 20 MG CAPSULE PO SCH (08:44)
[2019-03-14] MEDS: GABAPENTIN 400 MG CAPSULE PO SCH (08:44)
[2019-03-14] MEDS: OLANZapine 10 MG TABLET PO SCH ×2 (08:45→20:35)
[2019-03-14] MEDS: DULoxetine HCL 60 MG CAPSULE PO SCH (08:45)
[2019-03-14] MEDS: DOCUSATE SODIUM 100 MG CAPSULE PO SCH (08:45)
[2019-03-14] MEDS: GABAPENTIN 300 MG CAPSULE PO SCH ×2 (13:03→16:42)
[2019-03-14 16:28] LABS: GLUCOMETER DEV NAME(LOC) BV2X.; GLUCOSE,POINT OF CARE 80 MG/DL (70-110)
[2019-03-14 16:42] VITALS: BP 107/73
[2019-03-15 02:00] VITALS: BP 117/71
[2019-03-15] MEDS: MetFORMIN HCL 500 MG TABLET PO SCH ×2 (06:09→17:01)
[2019-03-15 07:19] LABS: GLUCOMETER DEV NAME(LOC) BV2X.; GLUCOSE,POINT OF CARE 128 MG/DL (70-110)
[2019-03-15] MEDS: DULoxetine HCL 60 MG CAPSULE PO SCH (08:18)
[2019-03-15] MEDS: GABAPENTIN 300 MG CAPSULE PO SCH ×3 (08:18→17:01)
[2019-03-15] MEDS: DOCUSATE SODIUM 100 MG CAPSULE PO SCH (08:18)
[2019-03-15] MEDS: OLANZapine 10 MG TABLET PO SCH ×2 (08:18→20:45)
[2019-03-15] MEDS: OMEPRAZOLE 20 MG CAPSULE PO SCH (08:18)
[2019-03-15 08:25] VITALS: BP 120/73
[2019-03-15 08:40] LABS: HEMATOCRIT 36.1 % (36-46); HEMOGLOBIN 11.5 g/dL (12.0-16.0); MEAN CORPUSCULAR HEMOGLOBIN 26.2 pg (26.0-34.0); MEAN CORPUSCULAR HGB CONC 31.8 G/dL (31.0-37.0); MEAN CORPUSCULAR VOLUME 83 fL (80-100); PLATELET COUNT (AUTO) 342 K/uL (150-450); RED BLOOD CELL COUNT(AUTO) 4.36 MIL/uL (4.00-5.20); RED CELL DISTRIBUTION WIDTH 14.6 % (11.5-14.5)
[2019-03-15 08:48] LABS: HEMOGLOBIN A1C 6.1 % (4.5-6.2)
[2019-03-15 09:01] LABS: ANION GAP 6 mmol/L (8-16); CALCIUM, TOTAL 8.6 mg/dL (8.8-10.5); CARBON DIOXIDE 31 mmol/L (22-29); CHLORIDE 104 mmol/L (98-107); CHOL/HDL RATIO 4.1 (3.9-5.7); CHOLESTEROL 145 mg/dL (131-200); CREATININE 0.73 mg/dL (0.60-1.30); GLOMERULAR FILTR. RATE CALC > 60 mL/min (>60); GLUCOSE,RANDOM 79 mg/dL (70-110); HDL CHOLESTEROL 35 mg/dL (40-60); LDL CHOL (CALC.) 90 mg/dL (0-130); PHOSPHORUS 4.9 mg/dL (2.5-4.9); POTASSIUM 3.9 mmol/L (3.5-5.1); SODIUM SERUM 141 mmol/L (136-145); TRIGLYCERIDES 101 mg/dL (15-150); UREA NITROGEN, BLOOD 14 mg/dL (7-18)
[2019-03-15 09:39] LABS: BAND NEUTROPHILS % (MANUAL) 3 % (0-5); LYMPHOCYTES % (MANUAL) 23 % (22-44); MONOCYTES % (MANUAL) 3 % (2-9); SEGMENTED NEUTROPHILS % 71 % (40-70)
[2019-03-15] MEDS: LORazepam 2 MG TABLET PO PRN (09:54)
[2019-03-15 11:04] LABS: GLUCOMETER DEV NAME(LOC) BV2X.; GLUCOSE,POINT OF CARE 108 MG/DL (70-110)
[2019-03-15 16:28] LABS: GLUCOMETER DEV NAME(LOC) BV2X.; GLUCOSE,POINT OF CARE 111 MG/DL (70-110)
[2019-03-15 20:50] VITALS: BP 117/64
[2019-03-15] MEDS: ZOLPIDEM TARTRATE 10 MG TABLET PO PRN (20:54)
[2019-03-16 05:37] VITALS: BP 125/68
[2019-03-16 06:19] LABS: GLUCOMETER DEV NAME(LOC) BV2X.; GLUCOSE,POINT OF CARE 74 MG/DL (70-110)
[2019-03-16] MEDS: MetFORMIN HCL 500 MG TABLET PO SCH ×2 (07:00→16:36)
[2019-03-16 09:13] VITALS: BP 123/67
[2019-03-16] MEDS: OLANZapine 10 MG TABLET PO SCH ×2 (09:21→20:42)
[2019-03-16] MEDS: LORazepam 2 MG TABLET PO PRN ×2 (09:21→17:11)
[2019-03-16] MEDS: DOCUSATE SODIUM 100 MG CAPSULE PO SCH (09:21)
[2019-03-16] MEDS: GABAPENTIN 400 MG CAPSULE PO SCH ×3 (09:21→16:36)
[2019-03-16] MEDS: DULoxetine HCL 60 MG CAPSULE PO SCH (09:21)
[2019-03-16] MEDS: OMEPRAZOLE 20 MG CAPSULE PO SCH (09:21)
[2019-03-16 16:33] VITALS: BP 119/89
[2019-03-16 16:34] LABS: GLUCOMETER DEV NAME(LOC) BV2X.; GLUCOSE,POINT OF CARE 162 MG/DL (70-110)
[2019-03-16] MEDS: INSULIN LISPRO 100 UNITS/ML SQ PRN (16:46)
[2019-03-16] MEDS ORDERED: NICOTINE 21 MG/24 HOUR PATCH TD ONE (17:30)
[2019-03-16] MEDS: ZOLPIDEM TARTRATE 10 MG TABLET PO PRN (21:39)
[2019-03-17 02:23] VITALS: BP 120/67
[2019-03-17] MEDS: MetFORMIN HCL 500 MG TABLET PO SCH (06:45)
[2019-03-17] MEDS: OLANZapine 10 MG TABLET PO SCH (08:41)
[2019-03-17] MEDS: GABAPENTIN 400 MG CAPSULE PO SCH ×2 (08:41→12:29)
[2019-03-17] MEDS: DOCUSATE SODIUM 100 MG CAPSULE PO SCH (08:41)
[2019-03-17] MEDS: DULoxetine HCL 60 MG CAPSULE PO SCH (08:41)
[2019-03-17] MEDS: OMEPRAZOLE 20 MG CAPSULE PO SCH (08:41)
[2019-03-17 08:45] VITALS: BP 111/69
[2019-03-17] MEDS ORDERED: GABA-533 PO (12:38)
[2019-03-17] MEDS ORDERED: DULO60CA44 PO (12:38)
[2019-03-17] MEDS ORDERED: METF-960 PO (12:38)
[2019-03-17] MEDS ORDERED: OLAN10TA3 PO (12:38)
== END 2019-03-17 14:55 | disposition home or self-care (01) | DRG 750 ==
LOC: EMS 20:21 → B2X 03-09 04:31
PROVIDERS: ADMIT Psychiatry & Neurology Psychiatry; ATTEND Psychiatry & Neurology Psychiatry
DX: F25.1 Schizoaffective disorder, depressive type (principal); E11.9 Type 2 diabetes mellitus without complications; D50.9 Iron deficiency anemia, unspecified; E66.9 Obesity, unspecified; F15.10 Other stimulant abuse, uncomplicated; F17.200 Nicotine dependence, unspecified, uncomplicated; F60.3 Borderline personality disorder; F41.9 Anxiety disorder, unspecified; Z59.0 Homelessness; Z79.899 Other long term (current) drug therapy; Z88.8 Allergy status to other drugs, medicaments and biological substances; Z91.5 Personal history of self-harm; Z68.34 Body mass index [BMI] 34.0-34.9, adult
CPT/HCPCS: 83036; 83735; 84100; 85007; 87081; 96372; G0480; J1200; J1630; J2060

== ENCOUNTER 2019-05-29 15:56 | Inpatient (IN) | payer MEDICAID, OTHER ==
[~2019-05-29] VITALS: Ht 154.9 cm; Wt 94.8 kg
[~2019-05-29 15:56] MED LIST changes: -DSS100 PO; -DULO30CA2 PO; +DULO60CA44 PO; -OMEP20 PO; -PERID15L MM
[2019-05-29] MEDS ORDERED: HALOPERIDOL LACTATE 5 MG/ML VIAL IM ONE (16:45)
[2019-05-29] MEDS ORDERED: LORazepam 2 MG/ML VIAL IM ONE (16:45)
[2019-05-29] MEDS ORDERED: DiphenhydrAMINE HCL 50 MG/ML VIAL IM ONE (16:45)
[2019-05-30 00:18] VITALS: BP 121/86
[2019-05-30] MEDS ORDERED: PNEUMOCOCCAL VACCINE POLYVALENT 0.5 ML VIAL [PPSV23] IM ONE (00:30)
[2019-05-30 06:47] LABS: GLUCOMETER DEV NAME(LOC) BV3S.; GLUCOSE,POINT OF CARE 118 MG/DL (70-110)
[2019-05-30 08:02] VITALS: BP 121/64
[2019-05-30] MEDS: LORazepam 2 MG TABLET PO PRN (10:43)
[2019-05-30] MEDS ORDERED: IBUPROFEN 400 MG TABLET PO PRN (10:45)
[2019-05-30] MEDS ORDERED: MAGNESIUM HYDROXIDE SUSPENSION 30 ML UDCUP PO PRN (10:45)
[2019-05-30] MEDS ORDERED: ALBUTEROL SULFATE HFA 90 MCG/PUFF 8 GM INHALER IH PRN (10:45)
[2019-05-30] MEDS ORDERED: ACETAMINOPHEN 325 MG TABLET PO PRN (10:45)
[2019-05-30] MEDS ORDERED: NICOTINE 14 MG/24 HOUR PATCH TD PRN (10:45)
[2019-05-30] MEDS ORDERED: MAG HYDROX/AL HYDROX/SIMETH ES 30 ML SUSPENSION UDCUP PO PRN (10:45)
[2019-05-30] MEDS ORDERED: PETROLATUM,WHITE 28 GM JELLY TP PRN (10:45)
[2019-05-30] MEDS ORDERED: GuaiFENesin/D-METHORPHAN [SUGAR-FREE] 200-20MG/10 ML SYRUP UDCUP PO PRN (10:45)
[2019-05-30] MEDS ORDERED: LOPERAMIDE HCL 2 MG CAPSULE PO PRN (10:45)
[2019-05-30] MEDS ORDERED: ONDANSETRON HCL 4 MG TABLET PO PRN (10:45)
[2019-05-30] MEDS ORDERED: CloNIDine HCL 0.1 MG TABLET PO PRN (10:45)
[2019-05-30] MEDS ORDERED: DOCUSATE SODIUM 100 MG CAPSULE PO PRN (10:45)
[2019-05-30 12:53] VITALS: BP 108/62
[2019-05-30] MEDS: GABAPENTIN 400 MG CAPSULE PO SCH ×2 (14:15→16:28)
[2019-05-30 16:01] VITALS: BP 133/69
[2019-05-30] MEDS: TOPIRAMATE 25 MG TABLET PO SCH (16:28)
[2019-05-30] MEDS: NITROFURANTOIN/NITROFURAN MAC 100 MG CAPSULE [MACROBID] PO SCH (16:28)
[2019-05-30] MEDS: MetFORMIN HCL 500 MG TABLET PO SCH (16:28)
[2019-05-30] MEDS: HALOPERIDOL 5 MG TABLET PO SCH (20:20)
[2019-05-30 20:25] LABS: GLUCOMETER DEV NAME(LOC) BV3S.; GLUCOSE,POINT OF CARE 114 MG/DL (70-110)
[2019-05-31 05:58] VITALS: BP 127/70
[2019-05-31 06:41] LABS: GLUCOMETER DEV NAME(LOC) BV3S.; GLUCOSE,POINT OF CARE 107 MG/DL (70-110)
[2019-05-31] MEDS: MetFORMIN HCL 500 MG TABLET PO SCH ×2 (07:07→17:00)
[2019-05-31] MEDS: TOPIRAMATE 25 MG TABLET PO SCH ×2 (09:00→17:00)
[2019-05-31] MEDS: NITROFURANTOIN/NITROFURAN MAC 100 MG CAPSULE [MACROBID] PO SCH ×2 (09:00→17:00)
[2019-05-31] MEDS: GABAPENTIN 400 MG CAPSULE PO SCH ×3 (09:00→17:00)
[2019-05-31] MEDS ORDERED: LORazepam 2 MG/ML VIAL ONE (09:02)
[2019-05-31] MEDS ORDERED: DiphenhydrAMINE HCL 50 MG/ML VIAL ONE (09:03)
[2019-05-31] MEDS ORDERED: HALOPERIDOL LACTATE 5 MG/ML VIAL ONE (09:03)
[2019-05-31] MEDS ORDERED: LORazepam 2 MG/ML VIAL IM ONE (09:45)
[2019-05-31] MEDS ORDERED: DiphenhydrAMINE HCL 50 MG/ML VIAL IM ONE (09:45)
[2019-05-31] MEDS ORDERED: HALOPERIDOL LACTATE 5 MG/ML VIAL IM ONE (09:45)
[2019-05-31 16:00] VITALS: BP 116/68
[2019-05-31] MEDS: HALOPERIDOL 5 MG TABLET PO SCH (20:13)
[2019-06-01] MEDS: MetFORMIN HCL 500 MG TABLET PO SCH ×2 (07:00→17:50)
[2019-06-01 07:15] LABS: GLUCOMETER DEV NAME(LOC) BV3S.; GLUCOSE,POINT OF CARE 84 MG/DL (70-110)
[2019-06-01 08:21] LABS: BASOPHILS % (AUTO) 0.7 % (0.0-2.0); EOSINOPHILS % (AUTO) 2.2 % (1.0-6.0); HEMATOCRIT 36.1 % (36-46); HEMOGLOBIN 11.6 g/dL (12.0-16.0); LYMPHOCYTES # (AUTO) 2.9 K/uL (1.0-4.8); LYMPHOCYTES % (AUTO) 32.1 % (22.0-44.0); MEAN CORPUSCULAR HEMOGLOBIN 26.3 pg (26.0-34.0); MEAN CORPUSCULAR HGB CONC 32.2 G/dL (31.0-37.0); MEAN CORPUSCULAR VOLUME 82 fL (80-100); MONOCYTES # (AUTO) 0.5 K/uL (0.1-1.0); MONOCYTES % (AUTO) 5.2 % (2.0-9.0); NEUTROPHILS # (AUTO) 5.4 K/uL (1.8-7.7); NEUTROPHILS % (AUTO) 59.8 % (40.0-70.0); PLATELET COUNT (AUTO) 429 K/uL (150-450); RED BLOOD CELL COUNT(AUTO) 4.42 MIL/uL (4.00-5.20)
[2019-06-01] MEDS: NITROFURANTOIN/NITROFURAN MAC 100 MG CAPSULE [MACROBID] PO SCH ×2 (08:32→17:50)
[2019-06-01] MEDS: LORazepam 2 MG TABLET PO PRN ×2 (08:32→16:26)
[2019-06-01] MEDS: TOPIRAMATE 25 MG TABLET PO SCH ×2 (08:33→17:50)
[2019-06-01] MEDS: GABAPENTIN 400 MG CAPSULE PO SCH ×3 (08:33→17:50)
[2019-06-01 08:50] LABS: CHOL/HDL RATIO 3.9 (3.9-5.7); CHOLESTEROL 148 mg/dL (131-200); FREE T4 (FREE THYROXINE) 0.86 ng/dL (0.76-1.46); HCG,QUANTITATIVE < 1 mIU/mL (0-6); HDL CHOLESTEROL 38 mg/dL (40-60); LDL CHOL (CALC.) 89 mg/dL (0-130); THYROID STIMULATING HORMONE 3.29 uIU/mL (0.36-3.74); TRIGLYCERIDES 107 mg/dL (15-150)
[2019-06-01] MEDS: HALOPERIDOL 5 MG TABLET PO SCH (20:20)
[2019-06-02] MEDS: MetFORMIN HCL 500 MG TABLET PO SCH ×2 (06:55→16:01)
[2019-06-02 07:23] LABS: HIV 1-2 SCREEN 4TH GEN W/RFLX Non Reactive (Non Reactive)
[2019-06-02] MEDS: GABAPENTIN 400 MG CAPSULE PO SCH ×3 (09:24→16:01)
[2019-06-02] MEDS: NITROFURANTOIN/NITROFURAN MAC 100 MG CAPSULE [MACROBID] PO SCH ×2 (09:25→16:01)
[2019-06-02] MEDS: LORazepam 2 MG TABLET PO PRN ×2 (09:25→16:01)
[2019-06-02] MEDS: TOPIRAMATE 25 MG TABLET PO SCH ×2 (09:25→16:01)
[2019-06-02 11:29] VITALS: BP 111/72
[2019-06-02 16:00] VITALS: BP 109/66
[2019-06-02] MEDS: HALOPERIDOL 5 MG TABLET PO PRN (18:56)
[2019-06-02] MEDS: HALOPERIDOL 5 MG TABLET PO SCH (20:21)
[2019-06-02] MEDS: ZOLPIDEM TARTRATE 10 MG TABLET PO PRN (20:21)
[2019-06-03] MEDS: MetFORMIN HCL 500 MG TABLET PO SCH ×2 (06:56→16:54)
[2019-06-03] MEDS: GABAPENTIN 400 MG CAPSULE PO SCH ×4 (08:13→17:00)
[2019-06-03] MEDS: NITROFURANTOIN/NITROFURAN MAC 100 MG CAPSULE [MACROBID] PO SCH ×2 (08:13→16:01)
[2019-06-03] MEDS: TOPIRAMATE 25 MG TABLET PO SCH ×2 (08:13→16:01)
[2019-06-03] MEDS: LORazepam 2 MG TABLET PO PRN ×2 (08:39→18:51)
[2019-06-03 16:24] VITALS: BP 109/68
[2019-06-03] MEDS: HALOPERIDOL 5 MG TABLET PO PRN (18:51)
[2019-06-03] MEDS: HALOPERIDOL 5 MG TABLET PO SCH (20:02)
[2019-06-04] MEDS: MetFORMIN HCL 500 MG TABLET PO SCH ×2 (07:00→17:15)
[2019-06-04 08:03] VITALS: BP 103/65
[2019-06-04] MEDS: NITROFURANTOIN/NITROFURAN MAC 100 MG CAPSULE [MACROBID] PO SCH (09:04)
[2019-06-04] MEDS: TOPIRAMATE 25 MG TABLET PO SCH ×2 (09:04→17:15)
[2019-06-04] MEDS: GABAPENTIN 400 MG CAPSULE PO SCH ×3 (09:04→17:15)
[2019-06-04] MEDS: LORazepam 2 MG TABLET PO PRN ×2 (11:15→17:16)
[2019-06-04 16:01] VITALS: BP 121/78
[2019-06-04] MEDS: HALOPERIDOL 5 MG TABLET PO SCH (21:00)
[2019-06-04] MEDS: ZOLPIDEM TARTRATE 10 MG TABLET PO PRN (21:25)
[2019-06-05 06:10] VITALS: BP 117/70
[2019-06-05] MEDS: MetFORMIN HCL 500 MG TABLET PO SCH ×2 (06:59→17:31)
[2019-06-05] MEDS: GABAPENTIN 400 MG CAPSULE PO SCH ×3 (08:04→17:31)
[2019-06-05] MEDS: LORazepam 2 MG TABLET PO PRN ×2 (08:04→17:32)
[2019-06-05] MEDS: TOPIRAMATE 25 MG TABLET PO SCH ×2 (08:04→17:31)
[2019-06-05] MEDS: HALOPERIDOL 5 MG TABLET PO PRN ×2 (08:05→17:32)
[2019-06-05 08:16] VITALS: BP 112/57
[2019-06-05 16:17] VITALS: BP 118/76
[2019-06-05] MEDS: HALOPERIDOL 5 MG TABLET PO SCH (20:41)
[2019-06-06 01:16] VITALS: BP 114/70
[2019-06-06] MEDS: LORazepam 2 MG TABLET PO PRN ×3 (06:16→17:41)
[2019-06-06] MEDS: MetFORMIN HCL 500 MG TABLET PO SCH ×2 (06:16→18:36)
[2019-06-06 08:34] VITALS: BP 122/64
[2019-06-06] MEDS: GABAPENTIN 400 MG CAPSULE PO SCH ×3 (09:35→18:36)
[2019-06-06] MEDS: TOPIRAMATE 25 MG TABLET PO SCH ×2 (09:35→18:36)
[2019-06-06] MEDS: HALOPERIDOL 5 MG TABLET PO SCH ×2 (10:33→18:36)
[2019-06-06 16:18] VITALS: BP 117/64
[2019-06-06 18:36] LABS: GLUCOMETER DEV NAME(LOC) BV3S.; GLUCOSE,POINT OF CARE 112 MG/DL (70-110)
[2019-06-07 06:12] VITALS: BP 118/75
[2019-06-07] MEDS: MetFORMIN HCL 500 MG TABLET PO SCH ×2 (07:00→16:36)
[2019-06-07 08:22] VITALS: BP 138/79
[2019-06-07 08:25] VITALS: BP 121/83
[2019-06-07] MEDS: GABAPENTIN 400 MG CAPSULE PO SCH ×4 (09:00→16:35)
[2019-06-07] MEDS: TOPIRAMATE 25 MG TABLET PO SCH ×2 (09:21→16:35)
[2019-06-07] MEDS: HALOPERIDOL 5 MG TABLET PO SCH ×2 (09:21→16:36)
[2019-06-07] MEDS: LORazepam 2 MG TABLET PO PRN ×2 (09:30→20:54)
[2019-06-07] MEDS ORDERED: TUBERCULIN, PURIFIED PROTEIN DERIVATIVE 5 TU/0.1 ML SYRINGE ID ONE (12:00)
[2019-06-07 16:09] VITALS: BP 110/73
[2019-06-07] MEDS: ZOLPIDEM TARTRATE 10 MG TABLET PO PRN (20:54)
[2019-06-07] MEDS ORDERED: HALO5TAB2 PO (21:56)
[2019-06-07] MEDS ORDERED: TOPI25 PO (21:56)
[2019-06-08 06:10] VITALS: BP 119/73
[2019-06-08] MEDS: MetFORMIN HCL 500 MG TABLET PO SCH (06:20)
[2019-06-08] MEDS: GABAPENTIN 400 MG CAPSULE PO SCH ×2 (09:28→12:16)
[2019-06-08] MEDS: TOPIRAMATE 25 MG TABLET PO SCH (09:28)
[2019-06-08] MEDS: HALOPERIDOL 5 MG TABLET PO SCH (09:28)
[2019-06-08 09:42] VITALS: BP 100/48
[2019-06-08 10:22] VITALS: BP 110/62
[2019-06-08] MEDS: LORazepam 2 MG TABLET PO PRN (10:23)
== END 2019-06-08 14:36 | disposition home or self-care (01) | DRG 750 ==
LOC: EMS 16:00 → B3A 20:36
PROVIDERS: ADMIT Psychiatry & Neurology Psychiatry; ATTEND Psychiatry & Neurology Psychiatry
DX: F25.1 Schizoaffective disorder, depressive type (principal); E11.9 Type 2 diabetes mellitus without complications; F10.10 Alcohol abuse, uncomplicated; F15.10 Other stimulant abuse, uncomplicated; Z21 Asymptomatic human immunodeficiency virus [HIV] infection status; F17.210 Nicotine dependence, cigarettes, uncomplicated; Z59.0 Homelessness; Z91.5 Personal history of self-harm; Z88.8 Allergy status to other drugs, medicaments and biological substances; Z71.41 Alcohol abuse counseling and surveillance of alcoholic; Z71.51 Drug abuse counseling and surveillance of drug abuser
CPT/HCPCS: 84439; 84443; 87389; 90732; J1200; J1630; J2060

== ENCOUNTER 2020-02-06 02:49 | Inpatient (IN) | payer MEDICARE, MEDICAID ==
[~2020-02-06] VITALS: Ht 154.9 cm; Wt 108.4 kg
[~2020-02-06 02:49] MED LIST changes: -DULO60CA44 PO; +GABA-1201 PO; -GABA-533 PO; +HALO5TAB2 PO; -OLAN10TA3 PO; +TOPI25 PO
[2020-02-06] MEDS ORDERED: GuaiFENesin/D-METHORPHAN [SUGAR-FREE] 200-20MG/10 ML SYRUP UDCUP PO PRN (12:45)
[2020-02-06] MEDS ORDERED: PROMETHAZINE HCL 25 MG TABLET PO PRN (12:45)
[2020-02-06] MEDS ORDERED: OLANZapine 5 MG RAPDIS TABLET PO PRN (12:45)
[2020-02-06] MEDS ORDERED: HydrOXYzine PAMOATE 50 MG CAPSULE PO PRN (12:45)
[2020-02-06] MEDS ORDERED: TUBERCULIN, PURIFIED PROTEIN DERIVATIVE 5 TU/0.1 ML SYRINGE ID ONE (12:45)
[2020-02-06 14:42] VITALS: BP 130/71
[2020-02-06] MEDS ORDERED: GLUCAGON,HUMAN RECOMBINANT 1 MG VIAL IM PRN (16:15)
[2020-02-06] MEDS: ACYCLOVIR 200 MG CAPSULE PO SCH (17:00)
[2020-02-06] MEDS ORDERED: PNEUMOCOCCAL VACCINE POLYVALENT 0.5 ML VIAL [PPSV23] IM ONE (17:30)
[2020-02-06 17:49] LABS: GLUCOMETER DEV NAME(LOC) BV2S.; GLUCOSE,POINT OF CARE 195 MG/DL (70-110)
[2020-02-06] MEDS: MetFORMIN HCL 500 MG TABLET PO SCH (17:54)
[2020-02-06] MEDS: THIAMINE 100 MG TABLET PO SCH (17:54)
[2020-02-06] MEDS: INSULIN LISPRO 100 UNITS/ML SQ PRN (18:03)
[2020-02-06] MEDS: LORazepam 2 MG TABLET PO PRN (18:31)
[2020-02-06 19:53] VITALS: BP 123/77
[2020-02-06] MEDS ORDERED: DIVALPROEX SODIUM 500 MG ER TABLET PO SCH (21:00)
[2020-02-06] MEDS ORDERED: OLANZapine 5 MG RAPDIS TABLET PO SCH (21:00)
[2020-02-06] MEDS ORDERED: IBUPROFEN 600 MG TABLET PO PRN (21:30)
[2020-02-06] MEDS ORDERED: ACETAMINOPHEN 325 MG TABLET PO PRN (21:30)
[2020-02-06] MEDS ORDERED: DiphenhydrAMINE HCL 25 MG CAPSULE PO ONE (21:30)
[2020-02-06 21:40] VITALS: BP 116/82
[2020-02-07] VITALS (7 sets, daily range): BP systolic 123–152; BP diastolic 57–85
[2020-02-07 06:19] LABS: GLUCOMETER DEV NAME(LOC) BV2X.; GLUCOSE,POINT OF CARE 179 MG/DL (70-110)
[2020-02-07] MEDS: MetFORMIN HCL 500 MG TABLET PO SCH ×2 (06:27→16:44)
[2020-02-07] MEDS: INSULIN LISPRO 100 UNITS/ML SQ PRN (06:28)
[2020-02-07 08:21] LABS: BASOPHILS % (AUTO) 0.5 % (0.0-2.0); EOSINOPHILS % (AUTO) 2.2 % (1.0-6.0); HEMATOCRIT 35.7 % (36-46); HEMOGLOBIN 11.3 g/dL (12.0-16.0); LYMPHOCYTES # (AUTO) 2.7 K/uL (1.0-4.8); LYMPHOCYTES % (AUTO) 28.9 % (22.0-44.0); MEAN CORPUSCULAR HEMOGLOBIN 24.9 pg (26.0-34.0); MEAN CORPUSCULAR HGB CONC 31.6 G/dL (31.0-37.0); MEAN CORPUSCULAR VOLUME 79 fL (80-100); MONOCYTES # (AUTO) 0.5 K/uL (0.1-1.0); MONOCYTES % (AUTO) 5.7 % (2.0-9.0); NEUTROPHILS # (AUTO) 5.9 K/uL (1.8-7.7); NEUTROPHILS % (AUTO) 62.7 % (40.0-70.0); PLATELET COUNT (AUTO) 330 K/uL (150-450); RED BLOOD CELL COUNT(AUTO) 4.53 MIL/uL (4.00-5.20)
[2020-02-07] MEDS: FLUoxetine HCL 20 MG CAPSULE PO SCH (08:52)
[2020-02-07] MEDS: MULTIVITAMINS WITH MINERALS, THERAPEUTIC TABLET PO SCH (08:52)
[2020-02-07] MEDS: ACYCLOVIR 200 MG CAPSULE PO SCH ×3 (08:52→16:44)
[2020-02-07] MEDS: THIAMINE 100 MG TABLET PO SCH ×2 (08:52→16:44)
[2020-02-07] MEDS: FOLIC ACID 1 MG TABLET PO SCH (08:52)
[2020-02-07] MEDS: NALTREXONE HCL 50 MG TABLET PO SCH (08:52)
[2020-02-07 09:09] LABS: ALANINE AMINOTRANSFERASE 88 U/L (12-78); ALBUMIN 3.5 g/dL (3.4-5.0); ALKALINE PHOSPHATASE 63 U/L (46-116); ANION GAP 11 mmol/L (8-16); ASPARTATE AMINOTRANSFERASE 86 U/L (15-37); BILIRUBIN,TOTAL 0.3 mg/dL (0.1-1.0); CALCIUM, TOTAL 8.3 mg/dL (8.8-10.5); CARBON DIOXIDE 26 mmol/L (22-29); CHLORIDE 103 mmol/L (98-107); CHOL/HDL RATIO 5.4 (3.9-5.7); CHOLESTEROL 161 mg/dL (131-200); CREATININE 0.78 mg/dL (0.60-1.30); FREE T4 (FREE THYROXINE) 1.19 ng/dL (0.76-1.46); GLOMERULAR FILTR. RATE CALC > 60 mL/min (>60); GLUCOSE,RANDOM 174 mg/dL (70-110); HCG,QUANTITATIVE < 1 mIU/mL (0-6); HDL CHOLESTEROL 30 mg/dL (40-60); LDL CHOL (CALC.) 89 mg/dL (0-130); POTASSIUM 3.2 mmol/L (3.5-5.1); SODIUM SERUM 140 mmol/L (136-145); THYROID STIMULATING HORMONE 3.63 uIU/mL (0.36-3.74); TOTAL PROTEIN, SERUM 7.6 g/dL (6.4-8.2); TRIGLYCERIDES 210 mg/dL (15-150); UREA NITROGEN, BLOOD 10 mg/dL (7-18)
[2020-02-07 09:14] LABS: HEMOGLOBIN A1C 9.6 % (3.8-5.6)
[2020-02-07] MEDS: NICOTINE 14 MG/24 HOUR PATCH TD SCH (10:27)
[2020-02-07 16:12] LABS: GLUCOMETER DEV NAME(LOC) BV2X.; GLUCOSE,POINT OF CARE 124 MG/DL (70-110)
[2020-02-07] MEDS ORDERED: POTASSIUM CHLORIDE 20 MEQ ER TABLET PO ONE (16:30)
[2020-02-07] MEDS: LORazepam 2 MG TABLET PO PRN (16:44)
[2020-02-07 20:19] LABS: GLUCOMETER DEV NAME(LOC) BV2X.; GLUCOSE,POINT OF CARE 141 MG/DL (70-110)
[2020-02-07] MEDS: DiphenhydrAMINE HCL 50 MG CAPSULE PO SCH (20:31)
[2020-02-07] MEDS: HALOPERIDOL 10 MG TABLET PO SCH (20:31)
[2020-02-08 03:51] VITALS: BP 120/82
[2020-02-08] MEDS: MetFORMIN HCL 500 MG TABLET PO SCH ×2 (06:44→16:54)
[2020-02-08] MEDS: INSULIN LISPRO 100 UNITS/ML SQ PRN ×2 (06:45→16:37)
[2020-02-08 06:56] LABS: GLUCOMETER DEV NAME(LOC) BV2X.; GLUCOSE,POINT OF CARE 148 MG/DL (70-110)
[2020-02-08] MEDS: THIAMINE 100 MG TABLET PO SCH ×2 (08:15→16:54)
[2020-02-08] MEDS: FLUoxetine HCL 20 MG CAPSULE PO SCH (08:15)
[2020-02-08] MEDS: MULTIVITAMINS WITH MINERALS, THERAPEUTIC TABLET PO SCH (08:15)
[2020-02-08] MEDS: ACYCLOVIR 200 MG CAPSULE PO SCH ×3 (08:15→16:54)
[2020-02-08] MEDS: NICOTINE 14 MG/24 HOUR PATCH TD SCH (08:16)
[2020-02-08] MEDS: FOLIC ACID 1 MG TABLET PO SCH (08:16)
[2020-02-08] MEDS: NALTREXONE HCL 50 MG TABLET PO SCH (08:16)
[2020-02-08 08:38] LABS: HIV 1-2 SCREEN 4TH GEN W/RFLX Non Reactive (Non Reactive)
[2020-02-08] MEDS ORDERED: HALOPERIDOL LACTATE 5 MG/ML VIAL ONE (10:07)
[2020-02-08] MEDS ORDERED: DiphenhydrAMINE HCL 50 MG/ML VIAL IM ONE (10:15)
[2020-02-08] MEDS ORDERED: HALOPERIDOL LACTATE 5 MG/ML VIAL IM ONE (10:15)
[2020-02-08] MEDS ORDERED: LORazepam 2 MG/ML VIAL IM ONE (10:15)
[2020-02-08 16:09] VITALS: BP 140/79
[2020-02-08 16:43] LABS: GLUCOMETER DEV NAME(LOC) BV2X.; GLUCOSE,POINT OF CARE 206 MG/DL (70-110)
[2020-02-08] MEDS: HALOPERIDOL 10 MG TABLET PO SCH (20:32)
[2020-02-08] MEDS: DiphenhydrAMINE HCL 50 MG CAPSULE PO SCH (20:32)
[2020-02-09 03:08] VITALS: BP 124/77
[2020-02-09] MEDS: LORazepam 2 MG TABLET PO PRN (03:08)
[2020-02-09 06:17] LABS: GLUCOMETER DEV NAME(LOC) BV2X.; GLUCOSE,POINT OF CARE 143 MG/DL (70-110)
[2020-02-09] MEDS: MetFORMIN HCL 500 MG TABLET PO SCH ×2 (06:32→16:31)
[2020-02-09] MEDS: INSULIN LISPRO 100 UNITS/ML SQ PRN (06:33)
[2020-02-09 08:04] LABS: ANION GAP 12 mmol/L (8-16); CALCIUM, TOTAL 8.8 mg/dL (8.8-10.5); CARBON DIOXIDE 26 mmol/L (22-29); CHLORIDE 103 mmol/L (98-107); CREATININE 0.82 mg/dL (0.60-1.30); GLOMERULAR FILTR. RATE CALC > 60 mL/min (>60); GLUCOSE,RANDOM 125 mg/dL (70-110); POTASSIUM 3.6 mmol/L (3.5-5.1); SODIUM SERUM 141 mmol/L (136-145); UREA NITROGEN, BLOOD 15 mg/dL (7-18)
[2020-02-09] MEDS: FLUoxetine HCL 20 MG CAPSULE PO SCH (08:17)
[2020-02-09] MEDS: MULTIVITAMINS WITH MINERALS, THERAPEUTIC TABLET PO SCH (08:17)
[2020-02-09] MEDS: FOLIC ACID 1 MG TABLET PO SCH (08:17)
[2020-02-09] MEDS: NALTREXONE HCL 50 MG TABLET PO SCH (08:17)
[2020-02-09] MEDS: THIAMINE 100 MG TABLET PO SCH ×2 (08:17→16:31)
[2020-02-09] MEDS: ACYCLOVIR 200 MG CAPSULE PO SCH ×3 (08:17→16:32)
[2020-02-09 08:18] VITALS: BP 113/71
[2020-02-09] MEDS: NICOTINE 14 MG/24 HOUR PATCH TD SCH (08:21)
[2020-02-09 16:24] VITALS: BP 128/72
[2020-02-09 17:25] LABS: GLUCOMETER DEV NAME(LOC) BV2X.; GLUCOSE,POINT OF CARE 93 MG/DL (70-110)
[2020-02-09] MEDS ORDERED: LORazepam 2 MG/ML VIAL ONE (19:08)
[2020-02-09] MEDS ORDERED: DiphenhydrAMINE HCL 50 MG/ML VIAL ONE (19:09)
[2020-02-09] MEDS ORDERED: HALOPERIDOL LACTATE 5 MG/ML VIAL ONE (19:10)
[2020-02-09] MEDS ORDERED: LORazepam 2 MG/ML VIAL IM ONE (19:15)
[2020-02-09] MEDS ORDERED: DiphenhydrAMINE HCL 50 MG/ML VIAL IM ONE (19:15)
[2020-02-09] MEDS ORDERED: HALOPERIDOL LACTATE 5 MG/ML VIAL IM ONE (19:15)
[2020-02-09] MEDS: HALOPERIDOL 10 MG TABLET PO SCH (20:38)
[2020-02-09] MEDS: DiphenhydrAMINE HCL 50 MG CAPSULE PO SCH (20:38)
[2020-02-10 06:01] LABS: GLUCOMETER DEV NAME(LOC) BV2X.; GLUCOSE,POINT OF CARE 122 MG/DL (70-110)
[2020-02-10] MEDS: MetFORMIN HCL 500 MG TABLET PO SCH ×2 (06:48→17:06)
[2020-02-10 06:53] VITALS: BP 117/73
[2020-02-10 08:35] VITALS: BP 122/81
[2020-02-10] MEDS: FOLIC ACID 1 MG TABLET PO SCH (08:38)
[2020-02-10] MEDS: NALTREXONE HCL 50 MG TABLET PO SCH (08:38)
[2020-02-10] MEDS: FLUoxetine HCL 20 MG CAPSULE PO SCH (08:38)
[2020-02-10] MEDS: MULTIVITAMINS WITH MINERALS, THERAPEUTIC TABLET PO SCH (08:38)
[2020-02-10] MEDS: THIAMINE 100 MG TABLET PO SCH ×2 (08:38→17:06)
[2020-02-10] MEDS: ACYCLOVIR 200 MG CAPSULE PO SCH ×3 (10:11→17:06)
[2020-02-10] MEDS: NICOTINE 14 MG/24 HOUR PATCH TD SCH (10:12)
[2020-02-10] MEDS: HALOPERIDOL 5 MG TABLET PO PRN ×2 (12:47→16:50)
[2020-02-10] MEDS: LORazepam 2 MG TABLET PO PRN ×3 (12:47→20:51)
[2020-02-10] MEDS: INSULIN LISPRO 100 UNITS/ML SQ PRN (17:07)
[2020-02-10 17:09] VITALS: BP 132/65
[2020-02-10 17:13] LABS: GLUCOMETER DEV NAME(LOC) BV2X.; GLUCOSE,POINT OF CARE 152 MG/DL (70-110)
[2020-02-10] MEDS: DiphenhydrAMINE HCL 50 MG CAPSULE PO SCH (20:10)
[2020-02-10] MEDS: HALOPERIDOL 10 MG TABLET PO SCH (20:10)
[2020-02-11 06:19] LABS: GLUCOMETER DEV NAME(LOC) BV2X.; GLUCOSE,POINT OF CARE 108 MG/DL (70-110)
[2020-02-11] MEDS: MetFORMIN HCL 500 MG TABLET PO SCH ×2 (06:32→16:27)
[2020-02-11 09:12] VITALS: BP 114/86
[2020-02-11] MEDS: MULTIVITAMINS WITH MINERALS, THERAPEUTIC TABLET PO SCH (09:54)
[2020-02-11] MEDS: FOLIC ACID 1 MG TABLET PO SCH (09:54)
[2020-02-11] MEDS: FLUoxetine HCL 20 MG CAPSULE PO SCH (09:54)
[2020-02-11] MEDS: THIAMINE 100 MG TABLET PO SCH ×2 (09:54→16:26)
[2020-02-11] MEDS: NICOTINE 14 MG/24 HOUR PATCH TD SCH (09:54)
[2020-02-11] MEDS: NALTREXONE HCL 50 MG TABLET PO SCH (09:55)
[2020-02-11] MEDS: ACYCLOVIR 200 MG CAPSULE PO SCH ×3 (09:56→16:26)
[2020-02-11] MEDS: HALOPERIDOL 5 MG TABLET PO PRN (15:46)
[2020-02-11] MEDS: LORazepam 2 MG TABLET PO PRN ×2 (15:47→20:01)
[2020-02-11 16:00] VITALS: BP 124/78
[2020-02-11 17:28] LABS: GLUCOMETER DEV NAME(LOC) BV2X.; GLUCOSE,POINT OF CARE 136 MG/DL (70-110)
[2020-02-11] MEDS: DiphenhydrAMINE HCL 50 MG CAPSULE PO SCH (21:02)
[2020-02-11] MEDS: HALOPERIDOL 10 MG TABLET PO SCH (21:02)
[2020-02-11] MEDS: ZOLPIDEM TARTRATE 10 MG TABLET PO PRN (22:05)
[2020-02-12] MEDS: MetFORMIN HCL 500 MG TABLET PO SCH ×2 (06:16→16:31)
[2020-02-12 06:35] LABS: GLUCOMETER DEV NAME(LOC) BV2X.; GLUCOSE,POINT OF CARE 101 MG/DL (70-110)
[2020-02-12 08:41] VITALS: BP 122/69
[2020-02-12] MEDS: ACYCLOVIR 200 MG CAPSULE PO SCH ×3 (08:59→16:31)
[2020-02-12] MEDS: FOLIC ACID 1 MG TABLET PO SCH (09:00)
[2020-02-12] MEDS: NALTREXONE HCL 50 MG TABLET PO SCH (09:00)
[2020-02-12] MEDS: FLUoxetine HCL 20 MG CAPSULE PO SCH (09:00)
[2020-02-12] MEDS: MULTIVITAMINS WITH MINERALS, THERAPEUTIC TABLET PO SCH (09:00)
[2020-02-12] MEDS: THIAMINE 100 MG TABLET PO SCH ×2 (09:00→16:31)
[2020-02-12] MEDS: NICOTINE 14 MG/24 HOUR PATCH TD SCH (09:01)
[2020-02-12 12:48] LABS: GLUCOMETER DEV NAME(LOC) BV2X.; GLUCOSE,POINT OF CARE 176 MG/DL (70-110)
[2020-02-12] MEDS: INSULIN LISPRO 100 UNITS/ML SQ PRN (12:55)
[2020-02-12] MEDS: HALOPERIDOL 5 MG TABLET PO PRN (13:57)
[2020-02-12 14:59] LABS: GLUCOMETER DEV NAME(LOC) BV2X.; GLUCOSE,POINT OF CARE 175 MG/DL (70-110)
[2020-02-12 16:24] VITALS: BP 123/72
[2020-02-12 16:27] LABS: GLUCOMETER DEV NAME(LOC) BV2X.; GLUCOSE,POINT OF CARE 128 MG/DL (70-110)
[2020-02-12] MEDS: LORazepam 2 MG TABLET PO PRN (16:30)
[2020-02-12] MEDS: DiphenhydrAMINE HCL 50 MG CAPSULE PO SCH (20:42)
[2020-02-12] MEDS: HALOPERIDOL 10 MG TABLET PO SCH (20:42)
[2020-02-13 00:14] VITALS: BP 103/73
[2020-02-13] MEDS: MetFORMIN HCL 500 MG TABLET PO SCH ×2 (06:18→16:40)
[2020-02-13] MEDS: INSULIN LISPRO 100 UNITS/ML SQ PRN ×2 (06:20→11:51)
[2020-02-13 06:41] LABS: GLUCOMETER DEV NAME(LOC) BV2X.; GLUCOSE,POINT OF CARE 208 MG/DL (70-110)
[2020-02-13] MEDS: FLUoxetine HCL 20 MG CAPSULE PO SCH (09:51)
[2020-02-13] MEDS: FOLIC ACID 1 MG TABLET PO SCH (09:51)
[2020-02-13] MEDS: THIAMINE 100 MG TABLET PO SCH ×2 (09:51→16:40)
[2020-02-13] MEDS: ACYCLOVIR 200 MG CAPSULE PO SCH ×3 (09:51→16:40)
[2020-02-13] MEDS: MULTIVITAMINS WITH MINERALS, THERAPEUTIC TABLET PO SCH (09:51)
[2020-02-13] MEDS: NALTREXONE HCL 50 MG TABLET PO SCH (09:52)
[2020-02-13] MEDS: NICOTINE 14 MG/24 HOUR PATCH TD SCH (09:52)
[2020-02-13 10:04] VITALS: BP 117/74
[2020-02-13 11:13] LABS: GLUCOMETER DEV NAME(LOC) BV2X.; GLUCOSE,POINT OF CARE 167 MG/DL (70-110)
[2020-02-13] MEDS: LORazepam 2 MG TABLET PO PRN ×2 (12:01→16:50)
[2020-02-13] MEDS: HALOPERIDOL 5 MG TABLET PO PRN ×2 (12:28→17:24)
[2020-02-13 16:22] LABS: GLUCOMETER DEV NAME(LOC) BV2X.; GLUCOSE,POINT OF CARE 92 MG/DL (70-110)
[2020-02-13 16:29] VITALS: BP 114/69
[2020-02-13] MEDS: DiphenhydrAMINE HCL 50 MG CAPSULE PO SCH (20:34)
[2020-02-13] MEDS: HALOPERIDOL 10 MG TABLET PO SCH (20:34)
[2020-02-13] MEDS: ZOLPIDEM TARTRATE 10 MG TABLET PO PRN (20:58)
[2020-02-14] MEDS: MetFORMIN HCL 500 MG TABLET PO SCH ×2 (06:33→16:33)
[2020-02-14 06:46] LABS: GLUCOMETER DEV NAME(LOC) BV2X.; GLUCOSE,POINT OF CARE 92 MG/DL (70-110)
[2020-02-14] MEDS: THIAMINE 100 MG TABLET PO SCH ×2 (08:07→16:33)
[2020-02-14] MEDS: ACYCLOVIR 200 MG CAPSULE PO SCH ×3 (08:07→16:33)
[2020-02-14] MEDS: FOLIC ACID 1 MG TABLET PO SCH (08:08)
[2020-02-14] MEDS: FLUoxetine HCL 20 MG CAPSULE PO SCH (08:08)
[2020-02-14] MEDS: NALTREXONE HCL 50 MG TABLET PO SCH (08:08)
[2020-02-14] MEDS: NICOTINE 14 MG/24 HOUR PATCH TD SCH (08:11)
[2020-02-14 08:40] VITALS: BP 122/71
[2020-02-14] MEDS: MULTIVITAMINS WITH MINERALS, THERAPEUTIC TABLET PO SCH (10:20)
[2020-02-14 16:22] VITALS: BP 124/76
[2020-02-14 16:23] LABS: GLUCOMETER DEV NAME(LOC) BV2X.; GLUCOSE,POINT OF CARE 191 MG/DL (70-110)
[2020-02-14] MEDS: INSULIN LISPRO 100 UNITS/ML SQ PRN (16:34)
[2020-02-14] MEDS: DiphenhydrAMINE HCL 50 MG CAPSULE PO SCH (20:32)
[2020-02-14] MEDS: HALOPERIDOL 10 MG TABLET PO SCH (20:32)
[2020-02-14] MEDS: LORazepam 2 MG TABLET PO PRN (21:16)
[2020-02-14] MEDS: ZOLPIDEM TARTRATE 10 MG TABLET PO PRN (22:23)
[2020-02-15 06:24] LABS: GLUCOMETER DEV NAME(LOC) BV2X.; GLUCOSE,POINT OF CARE 102 MG/DL (70-110)
[2020-02-15] MEDS: MetFORMIN HCL 500 MG TABLET PO SCH ×2 (07:00→16:06)
[2020-02-15] MEDS: NALTREXONE HCL 50 MG TABLET PO SCH (09:16)
[2020-02-15] MEDS: MULTIVITAMINS WITH MINERALS, THERAPEUTIC TABLET PO SCH (09:16)
[2020-02-15] MEDS: THIAMINE 100 MG TABLET PO SCH ×2 (09:16→16:06)
[2020-02-15] MEDS: NICOTINE 14 MG/24 HOUR PATCH TD SCH (09:16)
[2020-02-15] MEDS: FOLIC ACID 1 MG TABLET PO SCH (09:16)
[2020-02-15] MEDS: LORazepam 2 MG TABLET PO PRN ×2 (09:17→18:49)
[2020-02-15] MEDS: FLUoxetine HCL 20 MG CAPSULE PO SCH (09:18)
[2020-02-15] MEDS: ACYCLOVIR 200 MG CAPSULE PO SCH ×3 (09:26→16:07)
[2020-02-15 10:47] VITALS: BP 129/78
[2020-02-15 16:15] LABS: GLUCOMETER DEV NAME(LOC) BV2X.; GLUCOSE,POINT OF CARE 106 MG/DL (70-110)
[2020-02-15 16:45] VITALS: BP 116/66
[2020-02-15 17:24] VITALS: BP 116/66
[2020-02-15] MEDS: HALOPERIDOL 10 MG TABLET PO SCH (20:16)
[2020-02-15] MEDS: DiphenhydrAMINE HCL 50 MG CAPSULE PO SCH (20:16)
[2020-02-15] MEDS: ZOLPIDEM TARTRATE 10 MG TABLET PO PRN (21:12)
[2020-02-16 02:45] VITALS: BP 123/83
[2020-02-16 06:29] LABS: GLUCOMETER DEV NAME(LOC) BV2X.; GLUCOSE,POINT OF CARE 106 MG/DL (70-110)
[2020-02-16] MEDS: MetFORMIN HCL 500 MG TABLET PO SCH ×2 (07:00→17:03)
[2020-02-16 08:36] VITALS: BP 127/79
[2020-02-16] MEDS: MULTIVITAMINS WITH MINERALS, THERAPEUTIC TABLET PO SCH (08:38)
[2020-02-16] MEDS: FLUoxetine HCL 20 MG CAPSULE PO SCH (08:38)
[2020-02-16] MEDS: FOLIC ACID 1 MG TABLET PO SCH (08:38)
[2020-02-16] MEDS: NALTREXONE HCL 50 MG TABLET PO SCH (08:38)
[2020-02-16] MEDS: ACYCLOVIR 200 MG CAPSULE PO SCH ×3 (08:39→17:03)
[2020-02-16] MEDS: NICOTINE 14 MG/24 HOUR PATCH TD SCH (08:39)
[2020-02-16] MEDS: THIAMINE 100 MG TABLET PO SCH (08:39)
[2020-02-16 16:09] VITALS: BP 107/68
[2020-02-16 16:27] LABS: GLUCOMETER DEV NAME(LOC) BV2X.; GLUCOSE,POINT OF CARE 135 MG/DL (70-110)
[2020-02-16] MEDS: LORazepam 2 MG TABLET PO PRN (17:49)
[2020-02-16] MEDS: HALOPERIDOL 5 MG TABLET PO PRN (18:29)
[2020-02-16] MEDS: DiphenhydrAMINE HCL 50 MG CAPSULE PO SCH (20:35)
[2020-02-16] MEDS: HALOPERIDOL 10 MG TABLET PO SCH (20:35)
[2020-02-16] MEDS: ZOLPIDEM TARTRATE 10 MG TABLET PO PRN (20:55)
[2020-02-17 06:20] LABS: GLUCOMETER DEV NAME(LOC) BV2X.; GLUCOSE,POINT OF CARE 127 MG/DL (70-110)
[2020-02-17] MEDS: MetFORMIN HCL 500 MG TABLET PO SCH ×2 (06:36→16:54)
[2020-02-17 07:12] VITALS: BP 119/68
[2020-02-17] MEDS: MULTIVITAMINS WITH MINERALS, THERAPEUTIC TABLET PO SCH (08:14)
[2020-02-17] MEDS: FLUoxetine HCL 20 MG CAPSULE PO SCH (08:14)
[2020-02-17] MEDS: NICOTINE 14 MG/24 HOUR PATCH TD SCH (08:15)
[2020-02-17] MEDS: NALTREXONE HCL 50 MG TABLET PO SCH (08:15)
[2020-02-17] MEDS: ACYCLOVIR 200 MG CAPSULE PO SCH ×2 (08:15→13:08)
[2020-02-17 08:54] VITALS: BP 116/70
[2020-02-17] MEDS: LORazepam 2 MG TABLET PO PRN ×2 (12:15→17:10)
[2020-02-17 16:10] VITALS: BP 118/66
[2020-02-17 17:05] LABS: GLUCOMETER DEV NAME(LOC) BV2X.; GLUCOSE,POINT OF CARE 140 MG/DL (70-110)
[2020-02-17] MEDS: HALOPERIDOL 5 MG TABLET PO PRN (18:52)
[2020-02-17] MEDS: HALOPERIDOL 10 MG TABLET PO SCH (20:20)
[2020-02-17] MEDS: DiphenhydrAMINE HCL 50 MG CAPSULE PO SCH (20:20)
[2020-02-17] MEDS: ZOLPIDEM TARTRATE 10 MG TABLET PO PRN (20:28)
[2020-02-18] MEDS: MetFORMIN HCL 500 MG TABLET PO SCH ×2 (06:32→16:28)
[2020-02-18 06:33] LABS: GLUCOMETER DEV NAME(LOC) BV2X.; GLUCOSE,POINT OF CARE 115 MG/DL (70-110)
[2020-02-18] MEDS: NICOTINE 14 MG/24 HOUR PATCH TD SCH (08:20)
[2020-02-18] MEDS: FLUoxetine HCL 20 MG CAPSULE PO SCH (08:20)
[2020-02-18] MEDS: NALTREXONE HCL 50 MG TABLET PO SCH (08:20)
[2020-02-18] MEDS: MULTIVITAMINS WITH MINERALS, THERAPEUTIC TABLET PO SCH (08:20)
[2020-02-18 08:23] VITALS: BP 124/74
[2020-02-18] MEDS: LORazepam 2 MG TABLET PO PRN ×2 (10:28→15:41)
[2020-02-18 16:10] LABS: GLUCOMETER DEV NAME(LOC) BV2X.; GLUCOSE,POINT OF CARE 110 MG/DL (70-110)
[2020-02-18 16:20] VITALS: BP 108/72
[2020-02-18] MEDS: HALOPERIDOL 5 MG TABLET PO PRN (16:27)
[2020-02-18] MEDS: HALOPERIDOL 10 MG TABLET PO SCH (20:31)
[2020-02-18] MEDS: DiphenhydrAMINE HCL 50 MG CAPSULE PO SCH (20:31)
[2020-02-18] MEDS: ZOLPIDEM TARTRATE 10 MG TABLET PO PRN (21:11)
[2020-02-19 03:56] VITALS: BP 110/70
[2020-02-19] MEDS: MetFORMIN HCL 500 MG TABLET PO SCH ×2 (06:48→16:19)
[2020-02-19 08:12] VITALS: BP 114/63
[2020-02-19] MEDS: MULTIVITAMINS WITH MINERALS, THERAPEUTIC TABLET PO SCH (09:37)
[2020-02-19] MEDS: NICOTINE 14 MG/24 HOUR PATCH TD SCH (09:37)
[2020-02-19] MEDS: FLUoxetine HCL 20 MG CAPSULE PO SCH (09:37)
[2020-02-19] MEDS: NALTREXONE HCL 50 MG TABLET PO SCH (09:37)
[2020-02-19] MEDS ORDERED: DIPH50 PO (14:35)
[2020-02-19] MEDS ORDERED: FLUO-191 PO (14:35)
[2020-02-19] MEDS ORDERED: HALO10 PO (14:35)
[2020-02-19] MEDS ORDERED: NALT50TA PO (14:35)
[2020-02-19] MEDS ORDERED: MULT1CAP32 PO (15:55)
[2020-02-19] MEDS: INSULIN LISPRO 100 UNITS/ML SQ PRN (16:11)
[2020-02-19 16:18] VITALS: BP 129/77
[2020-02-19 16:22] LABS: GLUCOMETER DEV NAME(LOC) BV2X.; GLUCOSE,POINT OF CARE 176 MG/DL (70-110)
== END 2020-02-19 17:30 | disposition home or self-care (01) | DRG 885 ==
LOC: B2X 17:19
PROVIDERS: ADMIT Psychiatry & Neurology Psychiatry; ATTEND Psychiatry & Neurology Psychiatry
DX: F25.0 Schizoaffective disorder, bipolar type (principal); R45.851 Suicidal ideations; Z68.42 Body mass index [BMI] 45.0-49.9, adult; E66.01 Morbid (severe) obesity due to excess calories; F17.210 Nicotine dependence, cigarettes, uncomplicated; D64.9 Anemia, unspecified; B02.9 Zoster without complications; D50.9 Iron deficiency anemia, unspecified; E11.9 Type 2 diabetes mellitus without complications; F15.10 Other stimulant abuse, uncomplicated; E87.6 Hypokalemia; F60.0 Paranoid personality disorder; Z59.0 Homelessness; Z88.8 Allergy status to other drugs, medicaments and biological substances; Z91.19 Patient's noncompliance with other medical treatment and regimen; Z87.440 Personal history of urinary (tract) infections
CPT/HCPCS: 80074; 80173; 83036; 84439; 84443; 86592; 87389; 90732; J1200; J1630; J2060